=== PATIENT | male | born 1965 | race African-American/Black ===

== ENCOUNTER → 2020-12-03 09:46 | Outpatient (BNVA) | payer OTHER, SELFPAY | PROVIDERS: PCP Internal Medicine; Visit Provider Urology ==

== ENCOUNTER → 2021-12-08 10:24 | Outpatient (BNVA) | payer OTHER, SELFPAY | PROVIDERS: PCP Internal Medicine; Visit Provider Urology ==

== ENCOUNTER → 2023-02-09 14:42 | Outpatient (BNVA) | payer OTHER, SELFPAY | PROVIDERS: PCP Internal Medicine; Visit Provider Nurse Practitioner Family | DX: R51.9 Headache, unspecified (principal); G40.909 Epilepsy, unspecified, not intractable, without status epilepticus; H53.8 Other visual disturbances; R06.83 Snoring; G47.19 Other hypersomnia; G47.9 Sleep disorder, unspecified | CPT/HCPCS: 99202 ==

== ENCOUNTER 2023-03-14 09:33 | Outpatient (REF) | payer OTHER, SELFPAY ==
--- NOTE | ~2023-03-14 | MR_ITS ---
MR BRAIN WITHOUT AND WITH CONTRAST CLINICAL INFORMATION: Headache. COMPARISON: None available. TECHNIQUE: Multiplanar, multisequence MRI of the brain was obtained before and after the intravenous administration of 10 mL of Gadavist. FINDINGS: There is a 2.6 cm AP by 2.6 cm TV by 2.1 cm CC homogeneously enhancing extra-axial mass along the posterior floor of the anterior cranial fossa compatible with a meningioma. The lesion uplifts the inferior aspect of the frontal lobes and there is no adjacent parenchymal edema. There is no additional pathologic enhancement intracranially. Extensive T2 signal changes throughout the supratentorial white matter and central abelino, possibly advanced chronic microangiopathy though nonspecific. There is no hydrocephalus, extra-axial surface collection, or herniation. The major flow voids at the skull base are preserved. There is no acute infarct on diffusion-weighted imaging. There is no intracranial hemorrhage on the gradient recalled echo acquisition. The midline structures are normal. The cerebellar tonsils are normally positioned. The cerebellum and brainstem are normal. The craniocervical junction iso normal. Osseous marrow signal intensity is homogenous. The visualized soft tissues are unremarkable. MR/MR head/brain wo/w con IMPRESSION: - There is an up to 2.6 cm homogeneously enhancing extra-axial mass along the posterior floor of the anterior cranial fossa compatible with a meningioma. The lesion uplifts the inferior aspect of the frontal lobes and there is no adjacent parenchymal edema. - Extensive T2 signal changes throughout the supratentorial white matter and central abelino, possibly advanced chronic microangiopathy though nonspecific.
== END 2023-03-14 09:34 | disposition home or self-care (01) ==
LOC: HO.MRI 09:33
PROVIDERS: PCP Internal Medicine; Visit Provider Nurse Practitioner Family
DX: R51.9 Headache, unspecified (principal); H53.8 Other visual disturbances; G40.909 Epilepsy, unspecified, not intractable, without status epilepticus
CPT/HCPCS: 70553; A9585

== ENCOUNTER 2023-05-30 11:31 | Outpatient (AMB) | payer OTHER, SELFPAY ==
[2023-05-30 11:32] VITALS: BP 124/76; PULSE 77; O2SAT 95; BMI 39.5
--- NOTE | 2023-05-30 11:32 | MHC.OFFVIS ---
Intake Vital Signs 05/30/23 11:32 Height 6 ft 1 in Weight 299 lb 8 oz BMI 39.5 BP 124/76 Blood Pressure Location Rt brachial Position Sitting Pulse 77 Pulse Source Pulse Oximeter Pulse Oximetry (%) 95 Oxygen Delivery Method Room Air Intake Visit Reasons: 2m follow up seizures - Confirmed Intake Note: Pt presents as a 2 month f/u for seizures. Pt states he hasn't had any seizures and just had surgery for tumor removal on his head. Practice Advisor Required: No Allergies amoxicillin Allergy (Unknown, Verified 05/30/23 11:35) Swelling Penicillins Allergy (Unknown, Verified 05/30/23 11:35) Unknown Medication List - Last Reconciled 05/30/23 by CARMEN López albuterol sulfate 90 mcg/actuation inhalation allopurinol 300 mg PO DAILY atorvastatin 80 mg PO DAILY diazepam 2 - 4 mg (1 - 2 x 2 mg) PO BEDTIME 30 days ibuprofen mg PO lamotrigine 200 mg PO BID 30 days lancets As directed pantoprazole 40 mg PO DAILY sildenafil 200 mg (2 x 100 mg) PO .P.r.n. 30 days triamcinolone acetonide 0.025% appl topical BID HPI HPI Comments History of Present Illness Details 58-yr-old male presents for f/u visit. ESR- was 4 WNL. Brain MRI revealed 2.6 cm homogeneously enhancing extra-axial mass along the posterior floor of the anterior cranial fossa compatible with a meningioma. We thus referred pt to neurosurgery, Dr Brian. Pt has since undergone meningioma excision w/o complication. He has noticed numbness around the right upper frontal region incision. Pt states the severe frontal headaches have stopped. He continues to have almost daily mild-moderate headache a/w photophobia and phonophobia. He did not find nurtec to be helpful- and also did not like the texture/taste. Pt denies any interval seizure activity. He has not had HST yet- rescheduled it d/t the above surgery. MR/MR head/brain wo/w con IMPRESSION: - There is an up to 2.6 cm homogeneously enhancing extra-axial mass along the posterior floor of the anterior cranial fossa compatible with a meningioma. The lesion uplifts the inferior aspect of the frontal lobes and there is no adjacent parenchymal edema. ? - Extensive T2 signal changes throughout the supratentorial white matter and central abelino, possibly advanced chronic microangiopathy though nonspecific. [facility] Medical History (Updated 05/30/23 @ 12:45 by CARMEN López) Asthma Chronic knee pain Diabetes mellitus, type II Erectile dysfunction due to arterial insufficiency Fatty liver GERD (gastroesophageal reflux disease) Gout HLD (hyperlipidemia) Hx of urinary tract infection Hypercholesterolemia Nonalcoholic fatty liver disease OA (osteoarthritis) Primary osteoarthritis of knees, bilateral Seizures Surgical History (Updated 05/30/23 @ 12:23 by CARMEN López) History of colonoscopy History of shoulder surgery S/P resection of meningioma Social History (Updated 05/30/23 @ 11:36 by Dee Dee Feliz [facility]) Alcohol intake: never Patient Tobacco Use Status: Former Tobacco user Review of Systems Const All systems reviewed & are unremarkable except as noted in HPI and below Physical Exam Vital Signs: Last Vital Signs Pulse 77 05/30/23 11:32 BP 124/76 05/30/23 11:32 Pulse Ox 95 05/30/23 11:32 Oxygen Delivery Method Room Air 05/30/23 11:32 BMI result Body Mass Index 39.5 Const General: cooperative and no acute distress Orientation/consciousness: patient oriented x3 HEENT Head: Yes normocephalic Resp Effort & Inspection: normal respiratory effort and able to speak in complete sentences Neuro General: patient oriented x3, gait normal and CN's II-XI intact bilaterally Cognition (Neuro): normal cognition Motor exam (neuro): 5/5 motor strength present throughout Psych Appearance: grossly normal Mental Status: mental status grossly normal Speech and movement: Normal speech and movement present Affect: normal affect Attitude: cooperative Thought process: Normal thought process present Assessment & Plan Assessment & Plan (1) Migraine without aura: Code(s): G43.009 - Migraine without aura, not intractable, without status migrainosus (2) Meningioma: Comment: s/p excision (04/2023) by Dr Melissa Brian Code(s): D32.9 - Benign neoplasm of meninges, unspecified (3) Seizure disorder: Code(s): G40.909 - Epilepsy, unspecified, not intractable, without status epilepticus (4) Excessive daytime sleepiness: Code(s): G47.19 - Other hypersomnia (5) Sleep difficulties: Code(s): G47.9 - Sleep disorder, unspecified (6) Snoring: Code(s): R06.83 - Snoring Plan Pt again advised to undergo HST to assess for sleep apnea For seizures: Continue Lamotrigine 200mg bid. Future considerations- adjuncting w/ another AED. ? For new onset severe headaches: Improved s/p excision of meningioma. Pt will f/u with Dr Brian yearly and prn. Will request most recent records from Dr Brian. For migraine: Stopped Diazepam. Pt tried Nurtec however this was ineffective. Trial Ubrelvy 50-100mg at onset of headache, may repeat in 2hrs (max 200mg/day)- sample given, if effective, will initiate order. May take w/ Ibuprofen. May use Ibuprofen prn sparingly. Acute headache tx contraindications: triptans d/t active seizure d/o Preventive headache tx contraindications: BBs d/t asthma dx. ? f/u in 3-4 months or sooner prn. Medications: New ubrogepant (Ubrelvy) take at onset of migraine, may repeat in 2hrs (may take w/ Ibuprofen) 50 - 100 mg (0.5 - 1 x 100 mg) PO ONCE 30 days PRN 16 tabs 3RF migraine headache Discontinued rimegepant (Nurtec ODT) Discontinued Reason: Doctor's Order 75 mg orally daily PRN; 30 days 16 tabs 3RF migraine headache Coding Level of Care Code Est Pt Level 4 (49198) Diagnoses Migraine without aura G43.009 Meningioma D32.9 Seizure disorder G40.909 Excessive daytime sleepiness G47.19 Sleep difficulties G47.9 Snoring R06.83
== END 2023-05-30 12:13 | disposition home or self-care (01) ==
PROVIDERS: Visit Provider Nurse Practitioner Family
DX: G43.009 Migraine without aura, not intractable, without status migrainosus (principal); D32.9 Benign neoplasm of meninges, unspecified; G40.909 Epilepsy, unspecified, not intractable, without status epilepticus; G47.19 Other hypersomnia; G47.9 Sleep disorder, unspecified; R06.83 Snoring
CPT/HCPCS: 99214

== ENCOUNTER → 2023-05-30 11:31 | Outpatient (BNVA) | payer OTHER, SELFPAY | PROVIDERS: Visit Provider Nurse Practitioner Family | DX: G43.009 Migraine without aura, not intractable, without status migrainosus (principal); D32.9 Benign neoplasm of meninges, unspecified; G40.909 Epilepsy, unspecified, not intractable, without status epilepticus; G47.19 Other hypersomnia; G47.9 Sleep disorder, unspecified; R06.83 Snoring; Z87.891 Personal history of nicotine dependence | CPT/HCPCS: 99212 ==

== ENCOUNTER 2023-08-03 10:55 | Outpatient (AMB) | payer OTHER, SELFPAY ==
--- NOTE | 2023-08-03 11:33 | A.OFFVIS_ITS ---
Intake Intake Visit Reasons: 1Y (Erectile Dys) Intake Note: Patient is Present for Follow Up Urology Medication: Sildenafil Antibiotic Allergies: Amoxicillin, Penicillin Blood Thinners: None Pharmacy: [facility] Allergies amoxicillin Allergy (Unknown, Verified 08/03/23 11:40) Swelling Penicillins Allergy (Unknown, Verified 08/03/23 11:40) Unknown HPI HPI Comments History of Present Illness Details Shadi JONES is a very pleasant male. They are a patient of Dr Muniz. He seen for the following conditions - erectile dysfunction 200 mg Viagra works Six month follow-up tele visit He will call for refill Erectile dysfunction: He presents today for for continued evaluation and management of erectile dysfunction - Discussed generic Viagra prescription - Can try up to 200mg if has no side effects - offered MICHELINE and injections. Symptoms have been present for/since progressive over several years starting 2013. Current treatment includes Viagra/sildenafil. Treatment side effects include none. At this time he experiences erections 9/17 are partial and insufficient for vaginal penetration, that undergo detumesence prior to penetration, ANGELA 8- 11 Moderate ED - Respond well to Viagra. Nocturnal erections do occur. Currently they are in a stable relationship. Associated problems hypertension No diabetes Yes dyslipidemia Yes Medications include(s) antihypertensive medication, insulin. Overall he is satisfied with the current management. Therapeutic plan includes increasing dose of oral medication PFSH Medical History HLD (hyperlipidemia) Primary osteoarthritis of knees, bilateral Nonalcoholic fatty liver disease Hx of urinary tract infection Chronic knee pain GERD (gastroesophageal reflux disease) Gout Seizures Hypercholesterolemia Diabetes mellitus, type II OA (osteoarthritis) Asthma Fatty liver Erectile dysfunction due to arterial insufficiency Surgical History S/P resection of meningioma History of shoulder surgery History of colonoscopy Social History Alcohol intake: never Patient Tobacco Use Status: Former Tobacco user Review of Systems Const Denies chills and Denies fever(s) Card Reports no additional complaints and Denies syncope Resp Denies cough GI Denies abdominal pain and Denies heartburn Reports as per HPI and Denies change in libido Neuro Denies syncope Psych Denies change in libido Endo Denies change in libido Physical Exam Const General: cooperative, healthy appearing, comfortable and no acute distress Orientation/consciousness: patient oriented x3 HEENT Face and sinus: Yes normal facial exam Mouth: moist mucous membranes Neck Neck: Yes normal visual inspection, Yes full ROM and Yes trachea midline Chest Chest palpation & inspection: normal inspection of the chest Resp Effort & Inspection: normal respiratory effort, able to speak in complete sentences and no respiratory distress GI Inspection: Yes normal to inspection Back/Spine/Pelvis Cervical Spine: normal cervical lordosis Thoracic/Lumbar Spine: thoracic and lumbar spine normal to inspection Skin General skin exam: no rashes or lesions noted Neuro General: patient oriented x3, gait normal, tone normal and moves all extremities Extrem General: Yes normal to inspection and Yes capillary refill normal Assessment & Plan Assessment & Plan (1) Erectile dysfunction associated with type 2 diabetes mellitus: Code(s): E11.69 - Type 2 diabetes mellitus with other specified complication; N52.1 - Erectile dysfunction due to diseases classified elsewhere Plan Six month follow-up Patient Instructions: Imaging studies, laboratory and physical exam results were discussed and reviewed in detail. No major barriers to patient understanding were identified. An opportunity to ask questions regarding the treatment plan was provided. All questions were answered. The patient expressed understanding and agreement with the above treatment plan. The patient is aware they should contact our office by phone for worsening of their current condition or the appearance of new urologic symptoms. Compliance is encouraged with any medications and followup testing that is ordered. It is a privilege to participate in the urologic care of your patient. If you have any questions or concerns regarding treatment for the above conditions, or other urologic issues, please do not hesitate to contact me. The office telephone contact is [phone]. This note is constructed using voice recognition software. While every effort has been made to ensure accuracy sales administration manager errors may have been included. Yours sincerely, Dr Rito Fitzpatrick MD, [facility] - Urology Providers of Expert, Compassionate Care for the Genitourinary System Coding Level of Care Code Est Pt Level 3 (20498) Diagnoses Erectile dysfunction associated with type 2 diabetes mellitus E11.69; N52.1
== END 2023-08-03 13:14 | disposition home or self-care (01) ==
PROVIDERS: PCP Internal Medicine; Visit Provider Urology
DX: E11.69 Type 2 diabetes mellitus with other specified complication (principal); N52.1 Erectile dysfunction due to diseases classified elsewhere
CPT/HCPCS: 99213

== ENCOUNTER → 2023-08-03 10:55 | Outpatient (BNVA) | payer OTHER, SELFPAY | PROVIDERS: PCP Internal Medicine; Visit Provider Urology | DX: E11.69 Type 2 diabetes mellitus with other specified complication (principal); N52.1 Erectile dysfunction due to diseases classified elsewhere | CPT/HCPCS: 99212 ==

== ENCOUNTER → 2023-09-01 08:40 | Outpatient (REF) | payer OTHER, SELFPAY | LOC: HO.SL 08:40 | PROVIDERS: PCP Internal Medicine; Visit Provider Nurse Practitioner Family | DX: R06.83 Snoring (principal); G47.19 Other hypersomnia; G47.9 Sleep disorder, unspecified | CPT/HCPCS: 95806 ==

== ENCOUNTER → 2023-09-01 08:53 | Outpatient (BNV) | payer OTHER, SELFPAY | PROVIDERS: PCP Internal Medicine; Visit Provider Psychiatry & Neurology Neurology | DX: R06.83 Snoring (principal) | CPT/HCPCS: 95806 ==

== ENCOUNTER 2023-10-05 08:39 | Outpatient (AMB) | payer OTHER, SELFPAY ==
--- NOTE | 2023-10-05 08:39 | MHC.OFFVIS ---
Intake Vital Signs 10/05/23 08:40 Height 6 ft 1 in Weight 302 lb BMI 39.8 BP 132/82 Blood Pressure Location Rt brachial Position Sitting Pulse 80 Pulse Source Pulse Oximeter Intake Visit Reasons: 4m follow up seizures-LVM Intake Note: Patient presents for 4 month follow up seizures. Allergies amoxicillin Allergy (Unknown, Verified 10/05/23 08:42) Swelling Penicillins Allergy (Unknown, Verified 10/05/23 08:42) Unknown Medication List - Last Reconciled 10/05/23 by CARMEN López albuterol sulfate 90 mcg/actuation inhalation allopurinol 300 mg PO DAILY atorvastatin 80 mg PO DAILY diazepam 2 - 4 mg (1 - 2 x 2 mg) PO BEDTIME 30 days ibuprofen mg PO lamotrigine 200 mg PO BID 30 days lancets As directed pantoprazole 40 mg PO DAILY sildenafil 200 mg (2 x 100 mg) PO .P.r.n. 30 days triamcinolone acetonide 0.025% appl topical BID ubrogepant (Ubrelvy) 50 - 100 mg (0.5 - 1 x 100 mg) PO ONCE PRN 30 days HPI HPI Comments History of Present Illness Details 58-yr-old male presents for f/u visit. Pt denies any significant interval medical changes. Pt denies any interval seizure activities. HST was inconclusive- AHI 4,4/hr w/ O2 Xavier 87%, AHI significantly higher in supine position- 15.5/hr. Pt reports some increased difficulty falling asleep. States his body is relaxed, but his mind just keeps going. Notes he has a lot of things going on- his father is in a skilled nursing. He has had 4 mild headaches since has last visit. Has the Ubrelvy but has not needed to use. He is supposed to follow-up w/ Dr Brian yearly. He is concerned about the annual MRI d/t claustrophobia. [facility] Medical History HLD (hyperlipidemia) Primary osteoarthritis of knees, bilateral Nonalcoholic fatty liver disease Hx of urinary tract infection Chronic knee pain GERD (gastroesophageal reflux disease) Gout Seizures Hypercholesterolemia Diabetes mellitus, type II OA (osteoarthritis) Asthma Fatty liver Erectile dysfunction due to arterial insufficiency Surgical History S/P resection of meningioma History of shoulder surgery History of colonoscopy Social History Alcohol intake: never Patient Tobacco Use Status: Former Tobacco user Review of Systems Const All systems reviewed & are unremarkable except as noted in HPI and below Physical Exam Vital Signs: Last Vital Signs Pulse 80 10/05/23 08:40 BP 132/82 10/05/23 08:40 BMI result Body Mass Index 39.8 Const General: cooperative and no acute distress Orientation/consciousness: patient oriented x3 HEENT Head: Yes normocephalic Resp Effort & Inspection: normal respiratory effort and able to speak in complete sentences Neuro General: patient oriented x3, gait normal and CN's II-XI intact bilaterally Cognition (Neuro): normal cognition Motor exam (neuro): 5/5 motor strength present throughout Psych Appearance: grossly normal Mental Status: mental status grossly normal Speech and movement: Normal speech and movement present Affect: normal affect Attitude: cooperative Thought process: Normal thought process present Thought content: Normal thought content present Insight: Good insight present (Psych) Judgement: Good judgement present (Psych) Assessment & Plan Assessment & Plan (1) Seizure disorder: Code(s): G40.909 - Epilepsy, unspecified, not intractable, without status epilepticus (2) Sleep difficulties: Code(s): G47.9 - Sleep disorder, unspecified (3) Excessive daytime sleepiness: Code(s): G47.19 - Other hypersomnia (4) Snoring: Code(s): R06.83 - Snoring (5) Migraine without aura: Code(s): G43.009 - Migraine without aura, not intractable, without status migrainosus Plan For sleep: Reviewed HST- inconclusive. Pt advised to undergo in-lab PSG to further assess. Avoid sleeping in supine position. Pt may benefit from reading/listening to [facility] to Insomnia by Dr Zeeshan Fragoso or similar CBTi resources. ? For seizures: Continue Lamotrigine 200mg bid. ? For hx meningioma s/p resection: Pt will f/u with Dr Brian yearly and prn. For f/u MRIs- pt will need pre-tx w/ anti-anxiety agent and ? open MRI. ?For migraine: May use Diazepam prn muscle spasm/sleep. Ubrelvy 50-100mg at onset of headache, may repeat in 2hrs (max 200mg/day)- sample given, if effective, will initiate order. May take w/ Ibuprofen. May use Ibuprofen prn sparingly. Acute headache tx contraindications: triptans d/t active seizure d/o Preventive headache tx contraindications: BBs d/t asthma dx. Previous tx trials: Nurtec- ineffective. ? f/u in 3-4 months or sooner prn. Orders: Orders RT PSG in-lab sleep study Today G40.909 - Epilepsy, unspecified, not intractable, without status epilepticus, G47.19 - Other hypersomnia, G47.9 - Sleep disorder, unspecified, R06.83 - Snoring Medications: Refilled diazepam 2 - 4 mg (1 - 2 x 2 mg) PO BEDTIME 30 days 60 tabs 1RF muscle spasm Coding Level of Care Code Est Pt Level 4 (94780) Diagnoses Seizure disorder G40.909 Sleep difficulties G47.9 Excessive daytime sleepiness G47.19 Snoring R06.83 Migraine without aura G43.009
[2023-10-05 08:40] VITALS: BP 132/82; PULSE 80; BMI 39.8
== END 2023-10-05 09:20 | disposition home or self-care (01) ==
PROVIDERS: PCP Internal Medicine; Visit Provider Nurse Practitioner Family
DX: G40.909 Epilepsy, unspecified, not intractable, without status epilepticus (principal); G47.9 Sleep disorder, unspecified; G47.19 Other hypersomnia; R06.83 Snoring; G43.009 Migraine without aura, not intractable, without status migrainosus
CPT/HCPCS: 99214

== ENCOUNTER → 2023-10-05 08:39 | Outpatient (BNVA) | payer OTHER, SELFPAY | PROVIDERS: PCP Internal Medicine; Visit Provider Nurse Practitioner Family | DX: G40.909 Epilepsy, unspecified, not intractable, without status epilepticus (principal); G47.9 Sleep disorder, unspecified; G47.19 Other hypersomnia; G43.009 Migraine without aura, not intractable, without status migrainosus; R06.83 Snoring | CPT/HCPCS: 99212 ==

== ENCOUNTER 2024-03-02 10:39 | Outpatient (AMB) | payer OTHER, SELFPAY ==
--- NOTE | 2024-03-02 10:40 | MHC.OFFVIS ---
Intake Visit Reasons: follow up Intake Note: Patient is Present for Follow Up Urology Medication: Sildenafil Antibiotic Allergies: Amoxicillin, Penicillins Blood Thinners: none Allergies amoxicillin Allergy (Unknown, Verified 10/05/23 08:42) Swelling Penicillins Allergy (Unknown, Verified 10/05/23 08:42) Unknown Medication List - Last Reconciled 03/02/24 by Rito Fitzpatrick MD albuterol sulfate 90 mcg/actuation inhalation allopurinol 300 mg PO DAILY atorvastatin 80 mg PO DAILY diazepam 2 - 4 mg (1 - 2 x 2 mg) PO BEDTIME 30 days ibuprofen mg PO lamotrigine 200 mg PO BID 30 days lancets As directed pantoprazole 40 mg PO DAILY sildenafil 200 mg (2 x 100 mg) PO .P.r.n. 30 days triamcinolone acetonide 0.025% appl topical BID ubrogepant (Ubrelvy) 50 - 100 mg (0.5 - 1 x 100 mg) PO ONCE PRN 30 days HPI Comments Details: Shadi JONES is a very pleasant male. They are a patient of Dr Muniz. He seen for the following conditions - erectile dysfunction Telemedicine Evaluation 15 min Consultation [employer] Bernadine Video Six-month follow-up Has been on 200 mg Viagra as needed Erectile dysfunction: He presents today for for continued evaluation and management of erectile dysfunction - Discussed generic Viagra prescription - Can try up to 200mg if has no side effects - offered MICHELINE and injections. Symptoms have been present for/since progressive over several years starting 2013. Current treatment includes Viagra/sildenafil. Treatment side effects include none. At this time he experiences erections 9/17 are partial and insufficient for vaginal penetration, that undergo detumesence prior to penetration, ANGELA 8-11 Moderate ED - Respond well to Viagra. Nocturnal erections do occur. Currently they are in a stable relationship. Associated problems hypertension No diabetes Yes dyslipidemia Yes Medications include(s) antihypertensive medication, insulin. Overall he is satisfied with the current management. Therapeutic plan includes increasing dose of oral medication [facility] Medical History HLD (hyperlipidemia) Primary osteoarthritis of knees, bilateral Nonalcoholic fatty liver disease Hx of urinary tract infection Chronic knee pain GERD (gastroesophageal reflux disease) Gout Seizures Hypercholesterolemia Diabetes mellitus, type II OA (osteoarthritis) Asthma Fatty liver Erectile dysfunction due to arterial insufficiency Surgical History S/P resection of meningioma History of shoulder surgery History of colonoscopy Social History Alcohol intake: never Patient Tobacco Use Status: Former Tobacco user Review of Systems Const All systems reviewed & are unremarkable except as noted in HPI and below Reports no additional complaints Resp Reports no additional complaints GI Reports no additional complaints Reports as per HPI Musc Reports no additional complaints Physical Exam Telemedicine evaluation Appropriate responses Regular breathing rate and rhythm HEENT Head: Yes normal to inspection Ears: hearing grossly normal bilaterally Eyes General: appearance normal, both eyes and all related structures Neck Neck: Yes normal visual inspection Chest Chest palpation & inspection: normal inspection of the chest Resp Effort & Inspection: normal respiratory effort and able to speak in complete sentences Telehealth Telehealth Telehealth Platform: [employer] Location of provider rendering services: practice address Location of patient: address on file Patient Identification confirmed using: Name, : Yes Telehealth method: video Patient verbally consented to treatment: Yes Patient verbally consented to billing insurance company: Yes Patient informed of any privacy concerns related to visit: Yes Assessment & Plan Assessment & Plan (1) Erectile dysfunction associated with type 2 diabetes mellitus: Code(s): E11.69 - Type 2 diabetes mellitus with other specified complication; N52.1 - Erectile dysfunction due to diseases classified elsewhere Category: Medical Plan Twelve month follow-up Patient Instructions: Imaging studies, laboratory and physical exam results were discussed and reviewed in detail. No major barriers to patient understanding were identified. An opportunity to ask questions regarding the treatment plan was provided. All questions were answered. The patient expressed understanding and agreement with the above treatment plan. The patient is aware they should contact our office by phone for worsening of their current condition or the appearance of new urologic symptoms. Compliance is encouraged with any medications and followup testing that is ordered. It is a privilege to participate in the urologic care of your patient. If you have any questions or concerns regarding treatment for the above conditions, or other urologic issues, please do not hesitate to contact me. The office telephone contact is [phone]. This note is constructed using voice recognition software. While every effort has been made to ensure accuracy materials handling coordinator errors may have been included. Yours sincerely, Dr Rito Fitzpatrick MD, [facility] - Urology Providers of Expert, Compassionate Care for the Genitourinary System Coding Level of Care Code Tele Est Pt Level 3 (93388) Diagnoses Erectile dysfunction associated with type 2 diabetes mellitus E11.69; N52.1
== END 2024-03-02 11:22 | disposition home or self-care (01) ==
LOC: HO.HUSH 10:39
PROVIDERS: PCP Internal Medicine; Visit Provider Urology
DX: E11.69 Type 2 diabetes mellitus with other specified complication (principal); N52.1 Erectile dysfunction due to diseases classified elsewhere
CPT/HCPCS: 99213

== ENCOUNTER → 2024-03-02 10:39 | Outpatient (BNVA) | payer OTHER, SELFPAY | PROVIDERS: PCP Internal Medicine; Visit Provider Urology ==

== ENCOUNTER 2024-05-24 09:32 | Outpatient (AMB) | payer OTHER, SELFPAY ==
--- NOTE | 2024-05-24 09:33 | A.OFFVIS_ITS ---
Intake Visit Reasons: Change of meds Intake Note: Patient is Present for Telephone Follow Up Med review Urology Med: Sildenafil Antibiotic Allergy: Amoxicillin, Penicillin Blood Thinner: None Patient would like to change his medication. Patient states that Sildenafil is not effective for him and would like to try another medication [employer] Required: No Allergies amoxicillin Allergy (Unknown, Verified 05/24/24 09:36) Swelling Penicillins Allergy (Unknown, Verified 05/24/24 09:36) Unknown HPI Comments Details: Shadi JONES is a very pleasant male. They are a patient of Dr Muniz. He seen for the following conditions - erectile dysfunction Telemedicine Evaluation 15 min Consultation [employer] Bernadine Video Failed high dose on demand Viagra Recommend high-dose daily Cialis with on demand sildenafil Erectile dysfunction: He presents today for for continued evaluation and management of erectile dysfunction - Discussed generic Viagra prescription - Can try up to 200mg if has no side effects - offered MICHELINE and injections. Symptoms have been present for/since progressive over several years starting 2013. Current treatment includes Viagra/sildenafil. Treatment side effects include none. At this time he experiences erections 9/17 are partial and insufficient for vaginal penetration, that undergo detumesence prior to penetration, ANGELA 8- 11 Moderate ED - Respond well to Viagra. Nocturnal erections do occur. Currently they are in a stable relationship. Associated problems hypertension No diabetes Yes dyslipidemia Yes Medications include(s) antihypertensive medication, insulin. Overall he is satisfied with the current management. Therapeutic plan includes increasing dose of oral medication PFSH Medical History HLD (hyperlipidemia) Primary osteoarthritis of knees, bilateral Nonalcoholic fatty liver disease Hx of urinary tract infection Chronic knee pain GERD (gastroesophageal reflux disease) Gout Seizures Hypercholesterolemia Diabetes mellitus, type II OA (osteoarthritis) Asthma Fatty liver Erectile dysfunction due to arterial insufficiency Surgical History S/P resection of meningioma History of shoulder surgery History of colonoscopy Social History Alcohol intake: never Patient Tobacco Use Status: Former Tobacco user Review of Systems Const All systems reviewed & are unremarkable except as noted in HPI and below Reports no additional complaints Resp Reports no additional complaints GI Reports no additional complaints Reports as per HPI Musc Reports no additional complaints Physical Exam Telemedicine evaluation Appropriate responses Regular breathing rate and rhythm HEENT Head: Yes normal to inspection Ears: hearing grossly normal bilaterally Eyes General: appearance normal, both eyes and all related structures Neck Neck: Yes normal visual inspection Chest Chest palpation & inspection: normal inspection of the chest Resp Effort & Inspection: normal respiratory effort and able to speak in complete sentences Telehealth Telehealth Telehealth Platform: [employer] Location of provider rendering services: practice address Location of patient: address on file Patient Identification confirmed using: Name, : Yes Telehealth method: video Patient verbally consented to treatment: Yes Patient verbally consented to billing insurance company: Yes Patient informed of any privacy concerns related to visit: Yes Minutes spent on Phone/Video with Pt.: 15 Assessment & Plan Assessment & Plan (1) Erectile dysfunction associated with type 2 diabetes mellitus: Code(s): E11.69 - Type 2 diabetes mellitus with other specified complication; N52.1 - Erectile dysfunction due to diseases classified elsewhere Category: Medical Plan Three month follow-up tele Medications: New tadalafil daily medication 10 mg PO DAILY 90 days 90 tabs 0RF sexual activity E11.69 - Type 2 diabetes mellitus with other specified complication, N52.1 - Erectile dysfunction due to diseases classified elsewhere Patient Instructions: Imaging studies, laboratory and physical exam results were discussed and reviewed in detail. No major barriers to patient understanding were identified. An opportunity to ask questions regarding the treatment plan was provided. All questions were answered. The patient expressed understanding and agreement with the above treatment plan. The patient is aware they should contact our office by phone for worsening of their current condition or the appearance of new urologic symptoms. Compliance is encouraged with any medications and followup testing that is ordered. It is a privilege to participate in the urologic care of your patient. If you have any questions or concerns regarding treatment for the above conditions, or other urologic issues, please do not hesitate to contact me. The office telephone contact is [phone]. This note is constructed using voice recognition software. While every effort has been made to ensure accuracy respiratory support technician errors may have been included. Yours sincerely, Dr Rito Fitzpatrick MD, [facility] - Urology Providers of Expert, Compassionate Care for the Genitourinary System Coding Level of Care Code Tele Est Pt Level 4 (96567) Diagnoses Erectile dysfunction associated with type 2 diabetes mellitus E11.69; N52.1
== END 2024-05-24 10:11 | disposition home or self-care (01) ==
LOC: HO.HUSH 09:32
PROVIDERS: PCP Internal Medicine; Visit Provider Urology
DX: E11.69 Type 2 diabetes mellitus with other specified complication (principal); N52.1 Erectile dysfunction due to diseases classified elsewhere
CPT/HCPCS: 99214

== ENCOUNTER → 2024-05-24 09:32 | Outpatient (BNVA) | payer OTHER, SELFPAY | PROVIDERS: PCP Internal Medicine; Visit Provider Urology ==

== ENCOUNTER 2024-08-23 08:17 | Outpatient (AMB) | payer OTHER, SELFPAY ==
--- NOTE | 2024-08-23 09:11 | MHC.OFFVIS ---
Intake Visit Reasons: 3m/med review(Tadalafil) Allergies amoxicillin Allergy (Unknown, Verified 05/24/24 09:36) Swelling Penicillins Allergy (Unknown, Verified 05/24/24 09:36) Unknown HPI Comments Details: Shadi JONES is a very pleasant male. They are a patient of Dr Muniz. He seen for the following conditions - erectile dysfunction Telemedicine Evaluation 15 min Consultation [employer] Bernadine Video attempted Did not pay for daily Cialis Prescription be provided to [facility] for 34 dollars Three-month follow-up Erectile dysfunction: He presents today for for continued evaluation and management of erectile dysfunction - Discussed generic Viagra prescription - Can try up to 200mg if has no side effects - offered MICHELINE and injections. Symptoms have been present for/since progressive over several years starting 2013. Current treatment includes Viagra/sildenafil. Treatment side effects include none. At this time he experiences erections 9/17 are partial and insufficient for vaginal penetration, that undergo detumesence prior to penetration, ANGELA 8-11 Moderate ED - Respond well to Viagra. Nocturnal erections do occur. Currently they are in a stable relationship. Associated problems hypertension No diabetes Yes dyslipidemia Yes Medications include(s) antihypertensive medication, insulin. Overall he is satisfied with the current management. Therapeutic plan includes increasing dose of oral medication PFSH Medical History HLD (hyperlipidemia) Primary osteoarthritis of knees, bilateral Nonalcoholic fatty liver disease Hx of urinary tract infection Chronic knee pain GERD (gastroesophageal reflux disease) Gout Seizures Hypercholesterolemia Diabetes mellitus, type II OA (osteoarthritis) Asthma Fatty liver Erectile dysfunction due to arterial insufficiency Surgical History S/P resection of meningioma History of shoulder surgery History of colonoscopy Social History Alcohol intake: never Patient Tobacco Use Status: Former Tobacco user Review of Systems Const All systems reviewed & are unremarkable except as noted in HPI and below Reports no additional complaints Resp Reports no additional complaints GI Reports no additional complaints Reports as per HPI Musc Reports no additional complaints Physical Exam Telemedicine evaluation Appropriate responses Regular breathing rate and rhythm HEENT Head: Yes normal to inspection Ears: hearing grossly normal bilaterally Eyes General: appearance normal, both eyes and all related structures Neck Neck: Yes normal visual inspection Chest Chest palpation & inspection: normal inspection of the chest Resp Effort & Inspection: normal respiratory effort and able to speak in complete sentences Telehealth Telehealth Telehealth Platform: [employer] Location of provider rendering services: practice address Location of patient: address on file Patient Identification confirmed using: Name, : Yes Telehealth method: video Patient verbally consented to treatment: Yes Patient verbally consented to billing insurance company: Yes Patient informed of any privacy concerns related to visit: Yes Minutes spent on Phone/Video with Pt.: 15 Assessment & Plan Assessment & Plan (1) Erectile dysfunction associated with type 2 diabetes mellitus: Code(s): E11.69 - Type 2 diabetes mellitus with other specified complication; N52.1 - Erectile dysfunction due to diseases classified elsewhere Category: Medical Plan Three-month follow-up tele Patient Instructions: Imaging studies, laboratory and physical exam results were discussed and reviewed in detail. No major barriers to patient understanding were identified. An opportunity to ask questions regarding the treatment plan was provided. All questions were answered. The patient expressed understanding and agreement with the above treatment plan. The patient is aware they should contact our office by phone for worsening of their current condition or the appearance of new urologic symptoms. Compliance is encouraged with any medications and followup testing that is ordered. It is a privilege to participate in the urologic care of your patient. If you have any questions or concerns regarding treatment for the above conditions, or other urologic issues, please do not hesitate to contact me. The office telephone contact is [phone]. This note is constructed using voice recognition software. While every effort has been made to ensure accuracy lever miller errors may have been included. Yours sincerely, Dr Rito Fitzpatrick MD, [facility] - Urology Providers of Expert, Compassionate Care for the Genitourinary System Coding Level of Care Code Tele Est Pt Level 3 (04741) Diagnoses Erectile dysfunction associated with type 2 diabetes mellitus E11.69; N52.1
== END 2024-08-23 09:22 | disposition home or self-care (01) ==
LOC: HO.HUSH 08:17
PROVIDERS: PCP Internal Medicine; Visit Provider Urology
DX: E11.69 Type 2 diabetes mellitus with other specified complication (principal); N52.1 Erectile dysfunction due to diseases classified elsewhere
CPT/HCPCS: 99213

== ENCOUNTER → 2024-08-23 08:17 | Outpatient (BNVA) | payer OTHER, SELFPAY | PROVIDERS: PCP Internal Medicine; Visit Provider Urology ==

== ENCOUNTER 2024-11-22 09:12 | Outpatient (AMB) | payer OTHER, SELFPAY ==
--- NOTE | 2024-11-22 09:12 | MHC.OFFVIS ---
Intake Visit Reasons: 3m follow up Intake Note: Patient is present for 3M F/U Urology Medication:SILDENAFIL,ALLOPURINOL Antibiotic Allergy:AMOXICILLIN,PENICILLINS Blood Thinner:NONE [employer] Required: No Allergies amoxicillin Allergy (Unknown, Verified 11/22/24 09:13) Swelling Penicillins Allergy (Unknown, Verified 11/22/24 09:13) Unknown HPI Comments Details: Shadi JONES is a very pleasant male. They are a patient of Dr Muniz. He seen for the following conditions - erectile dysfunction Telemedicine Evaluation 15 min Consultation [employer] Bernadine Video attempted Does have some benefit from daily 10 mg Cialis Refill sent Has also been using on demand sildenafil occasionally Six-month follow-up Erectile dysfunction: He presents today for for continued evaluation and management of erectile dysfunction - Discussed generic Viagra prescription - Can try up to 200mg if has no side effects - offered MICHELINE and injections. Symptoms have been present for/since progressive over several years starting 2013. Current treatment includes Viagra/sildenafil. Treatment side effects include none. At this time he experiences erections 9/17 are partial and insufficient for vaginal penetration, that undergo detumesence prior to penetration, ANGELA 8-11 Moderate ED - Respond well to Viagra. Nocturnal erections do occur. Currently they are in a stable relationship. Associated problems hypertension No diabetes Yes dyslipidemia Yes Medications include(s) antihypertensive medication, insulin. Overall he is satisfied with the current management. Therapeutic plan includes increasing dose of oral medication PFSH Medical History HLD (hyperlipidemia) Primary osteoarthritis of knees, bilateral Nonalcoholic fatty liver disease Hx of urinary tract infection Chronic knee pain GERD (gastroesophageal reflux disease) Gout Seizures Hypercholesterolemia Diabetes mellitus, type II OA (osteoarthritis) Asthma Fatty liver Erectile dysfunction due to arterial insufficiency Surgical History S/P resection of meningioma History of shoulder surgery History of colonoscopy Social History Alcohol intake: never Patient Tobacco Use Status: Former Tobacco user Telehealth Telehealth Telehealth Platform: [employer] Location of provider rendering services: practice address Location of patient: address on file Patient Identification confirmed using: Name, : Yes Telehealth method: video Patient verbally consented to treatment: Yes Patient verbally consented to billing insurance company: Yes Patient informed of any privacy concerns related to visit: Yes Minutes spent on Phone/Video with Pt.: 15 Assessment & Plan Assessment & Plan (1) Erectile dysfunction associated with type 2 diabetes mellitus: Code(s): E11.69 - Type 2 diabetes mellitus with other specified complication; N52.1 - Erectile dysfunction due to diseases classified elsewhere Category: Medical Plan Six-month follow-up office Medications: Refilled tadalafil daily medication - [facility] [address]33 [id number] 10 mg PO DAILY 90 days 90 tabs 0RF sexual activity E11.69 - Type 2 diabetes mellitus with other specified complication, N52.1 - Erectile dysfunction due to diseases classified elsewhere Patient Instructions: Imaging studies, laboratory and physical exam results were discussed and reviewed in detail. No major barriers to patient understanding were identified. An opportunity to ask questions regarding the treatment plan was provided. All questions were answered. The patient expressed understanding and agreement with the above treatment plan. The patient is aware they should contact our office by phone for worsening of their current condition or the appearance of new urologic symptoms. Compliance is encouraged with any medications and followup testing that is ordered. It is a privilege to participate in the urologic care of your patient. If you have any questions or concerns regarding treatment for the above conditions, or other urologic issues, please do not hesitate to contact me. The office telephone contact is [phone]. This note is constructed using voice recognition software. While every effort has been made to ensure accuracy sugar mill worker errors may have been included. Yours sincerely, Dr Rito Fitzpatrick MD, [facility] - Urology Providers of Expert, Compassionate Care for the Genitourinary System Coding Level of Care Code Tele Est Pt Level 3 (91810) Diagnoses Erectile dysfunction associated with type 2 diabetes mellitus E11.69; N52.1
--- OUTSIDE RECORDS SUMMARY | 2024-11-22 12:14 | XMS_ITS | Clinical Summary ---
Author Organization [facility] Address [address] [place] [address] Care Team Providers Care Cardiac/Vascular Sonographer Name Role Phone Davis Muniz MD Primary Care Provider [phone] Medications Medication Sig Dispensed Refills Start Date End Date Status atorvastatin (LIPITOR) tablet 80 mg Take 1 tablet (80 mg total) by mouth daily. 0 Active allopurinol (ZYLOPRIM) 300 MG tablet Take 1 tablet (300 mg total) by mouth daily. 0 Active lamoTRIgine (LaMICtal) 200 MG tablet Take 1 tablet (200 mg total) by mouth 2 (two) times a day. 0 Active pantoprazole (PROTONIX) 40 MG tablet Take 1 tablet (40 mg total) by mouth every morning on an empty stomach. 0 Active Social History Tobacco Use Types Packs/Day Years Used Date Smoking Tobacco: Never Assessed Sex and Gender Information Value Date Recorded Sex Assigned at Male 07/12/2024 9:57 AM EDT Gender Identity Not on file Sexual Orientation Not on file Job Start Date Occupation Industry Not on file Not on file Not on file Plan of Treatment Health Maintenance Due Date Last Done Comments Hepatitis B Vaccines (1 of 3 - 3-dose series) 1967 Hepatitis C Screening 1967 COVID-19 Vaccine (#1) 1967 Depression Screening 1979 Preventative Health Evaluation 1985 Colon Cancer Screening (Colonoscopy) 2012 Shingrix-Zoster Vaccine (1 o f 2) 2017 Influenza Vaccine (#1) 2024 0, 07/28/2018, 06/29/2017 DTap / Tdap / Td (2 - Td or Tdap) 09/08/2030 09/08/2020 Pneumococcal Vaccine Aged Out 02/08/2019, 11/07/2017 No longer eligible based on patient's age to complete this topic RSV Ped < 20 months Aged Out No longe r eligible based on patient's age to complete this topic Insurance Payer Benefit Plan / Group Subscriber ID Effective Dates Phone Address Type [facility] [id number] 2021-10/16 [address] [address] [place] [address] MEDICAID [place] MED[place] MANAGED [id number] 2024-Pre sent Medicaid MEDICAID [place] MED[place] [id number] 2024-Pr e sent [address] [place] [address] Medicaid MEDICAID [place] MNGED [facility] PLAN [id number] 2017-Yamileth marroquin [address] [address] [place] [address] Medicaid Care Teams Cardiac/Vascular Sonographer Relationship Specialty Start Date End Date Davis Muniz MD PCP - General Internal Medicine 07/12/24
--- OUTSIDE RECORDS SUMMARY | 2024-11-22 12:15 | XMS_ITS | Encounter Summary ---
Author Organization [facility] Address [address] [place] [address] Care Team Providers Care Merchant Mariner Name Role Phone Davis Muniz MD Primary Care Provider [phone] Reason for Visit * Reason Onset Date Comments PREOP REVIEW 11/07/2024 Encounter Details Date Type Department Care Team ([facility] st Contact Info) Description 11/07/2024 Telephone Orthopedic Surgery - [place] [address] [facility] [address] [place] [address] Yara Brenner RN PREOP REVIEW Social History Tobacco Use Types Packs/Day Years Used Date Smoking Tobacco: Former Cigarettes Q uit: 03/04/2014 Smokeless Tobacco: Never Alcohol Use Standard Drinks/Week Comments Yes 0 (1 standard drink = 0.6 oz pur e alcohol) Sex and Gender Information Value Date Recorded Sex Assigned at Not on file Gender Identity Not on file Sexual Orientation Not on file Job Start Date Occupation Industry Not on file Not on file Not on file documented as of this encounter Progress Notes * Yara Brenner RN - 11/07/2024 1:12 PM EST PRE-OP REVIEW: Prior Living Arrangements: Lives alone in an apartment, however girlfriend Malgorzata will be staying with patient after surgery, there are no stairs to enter and there is an elevator for him to use, onceinside apt everything is on one level Who will assist patient at home: his girlfriend Malgorzata DME: has a cane and grab bars, patient does not have a recliner Outside Services: none PCP: Dr. Muniz HCP: does not have a HCP, will need to complete one prior to surgery Patient's discharge goal: home with [facility] agency of choice and prebooked Patient's ride home: his girlfriend Malgorzata [phone] This nurse instructed patient NPO after midnight the day prior to surgery and small sips of H20 with medications on day of surgery. Patient instructed not to take Viagra 3 days prior to surgery. documented in this encounter Plan of Treatment Upcoming Encounters Date Type Department Care Team (Latest Contact Info) Description 12/10/2024 8:30 AM EST Office Visit [facility] [place] [address] [address] Mundo Richardson MD [address] [phone] 12/11/2024 7:30 AM EST Hospital Encounter [facility] [place] [address] [place] [phone] Davis Phelan MD [address] [address] 12/11/2024 7:30 AM EST - 12/11/2024 10:00 AM EST Surgery [facility] [address] [place] [phone] Davis Phelan MD [address] [address] ARTHROPLASTY SHOULDER REVERSE APPROACH RIGHT [[id number] (CPT??)] 12/25/2024 2:30 PM EST Consult Nephrology - [place] [address] [place] [address] Sergey Mesa MD [address] [facility] [address] [place] [phone] 12/26/2024 11:30 AM EST Office Visit Orthopedic Surgery - [place] [address] 175 [facility] [address] [place] [phone] Davis Phelan MD 175 [facility] [address] [place] [address] Scheduled Procedures Name Priority Associated Diagnoses Date/Ti me ARTHROPLASTY SHOULDER REVERSE APPROACH BILATERAL Rotator cuff arthropathy, right 12/11/2024 7:30 AM EST documented as of this encounter Visit Diagnoses Not on filedocumented in this encounter Care Teams Merchant Mariner Relationship Specialty Start Date End Date Davis Muniz MD [address] [place] [id number] PCP - General Internal Medicine 08/31/24 documented as of this encounter
--- OUTSIDE RECORDS SUMMARY | 2024-11-22 12:15 | XMS_ITS | Clinical Summary ---
Author Organization 175 [facility] Address [address] [place] [address] Phone Care Team Providers Care Game Moderator Name Role Phone Davis Muniz MD Primary Care Provider [phone] Allergies Active Allergy Reactions Criticality Noted Date Comments Amoxicillin Swelling 10/04/2017 Pollen Extracts 10/04/2024 Medications Medication Sig Dispensed Refills Start Date End Date Status butalbital-acetami nophen-caffeine 50-300-40 mg capsule Take by mouth. Active pantoprazole (PROTONIX) 40 mg EC tablet Take 1 tablet (40 mg total) by mouth 1 (one) time each day. 08/02/2024 Active allopurinoL (ZYLOPRIM) 300 mg tablet Take 1 tablet (300 mg total) by mouth 1 (one) time each day. 05/16/2024 Active atorvastatin (LIPITOR) 80 mg tablet Take 1 tablet (80 mg total) by mouth daily. 03/13/2024 Active lamoTRIgine (LaMICtal) 200 mg tablet Take 1 tablet (200 mg total) by mouth 2 (two) times a day. 03/07/2023 Active albuterol HFA (Ventolin HFA) 90 mcg/actuation inhaler INHALE TWO PUFFS BY MOUTH FOUR TIMES A DAY NEEDED FOR WHEEZE COUGH OR FOR SHORTNESS OF BREATH 02/08/2023 Active sildenafiL (VIAGRA) 100 mg tablet TAKE 1 TABLET NEEDED 09/05/2020 Active beclomethasone dipropionate 40 mcg/actuation HFA aerosol inhaler Inhale 2 Puffs into the lungs 2 times daily. 09/08/2020 Active FREESTYLE LANCETS MISC 09/08/2020 Active glucose blood test strip 09/08/2020 Active amitriptyline (ELAVIL) 25 mg tablet Take 1 tablet (25 mg total) by mouth 1 (one) time each day. 30 tablet 2 11/08/2024 11/08/2025 Active amitriptyline (ELAVIL) 25 mg tablet Take 1 tablet (25 mg total) by mouth 1 (one) time each day. 30 tablet 2 10/04/2024 11/08/2024 Discontinue d(Reorder) Active Problems Problem Noted Date Diagnosed Date Rotator cuff arthropathy, right 09/24/2024 Morbid obesity with BMI of 40.0-44.9, adult 08/24 Chronic bilateral low back pain without sciatica 03/13/2024 Meningioma, cerebral 04/01/2023 Overview (09/03/2024): Last Assessment & Plan: Mr. 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 He recovered well from surgery, has no issues with vision or with jaw pain chewing. He does report continued and nearly constant left-sided headache which has not responded to avpo-pny-fsqeslr medication. On exam, his incision is well-healed with no temporal atrophy. PERRL, EOMI, VFF, face is symmetric, speech is clear and fluent, strength is full with normal gait. Review of the MRI of the brain with and without gadolinium at [facility] dated 04/30/2024 shows no residual or recurrent enhancement in the operative bed. There is no evidence of stroke, hemorrhage or hydrocephalus. Mr. Barajas is doing well from a postoperative standpoint but has persistent, unrelated headaches. I recommended either Fioricet or Cafergot iugo-pyh-hzynvtm and follow-up with his PCP if the headaches persist for further management or referral to neurology. We will continue with surveillance imaging for at least 10 years. Uncontrolled type 2 diabetes mellitus with hyper glycemia 06/09/2022 External hemorrhoids 11/23/2017 Vasculogenic erectile dysfunction 06/06/2017 Fatty liver disease, nonalcoholic 04/12/2017 Uncomplicated asthma 02/07/2017 Primary osteoarthritis of both knees 08/12/2016 Chronic knee pain 03/30/2016 Pure hypercholesterolemia 03/05/2016 Gastroesophageal reflux disease without esophagi tis 03/04/2016 Gout 03/04/2016 Marijuana use 03/04/2016 Seizure disorder 03/04/2016 Overview (09/03/2024): Occurring after closed head injuries Encounters Date Type Department Care Team Description 11/19/2024 10:00 AM EST Consult Internal Medicine - [address] [phone] Davis Muniz MD Uncontrolled type 2 diabetes mellitus with hyperglycemia ([facility]) (Primary Dx); Chronic right shoulder pain; Pre-operative clearance; Mild intermittent asthma without complication 11/19/2024 [facility] 160 [address] [facility] [address] [place] [phone] Dinorah Jacobs MA Post op PT Order 11/07/2024 [facility] 250 [address] [facility] [address] [place] [phone] Yara Brenner RN PREOP REVIEW 10/04/2024 1:00 PM EST Consult [facility] 175 [facility] [address] [place] [phone] Mundo Richardson MD Meningioma, cerebral ([facility]/HCC) (Primary Dx); Chronic migraine without aura with status migrainosus, not intractable; Seizure ([facility]) 10/02/2024 Telephone Orthopedic Surgery [facility] 250 [address] [facility] [address] [place] [phone] Marlena Pool MA Surgery 09/19/2024 Telephone Orthopedic Surgery [facility] 160 [address] [facility] [address] [place] [phone] Davis Phelan MD booking sx 09/13/2024 [facility] [address] [place] [phone] Davis Muniz MD PT-1 09/12/2024 Telephone Neurosurgery [facility] 175 [facility] [address] [place] [phone] Melissa Brian MD Advice Only (Antibiotic for dental procedure) 09/05/2024 3:34 PM EST - 09/05/2024 11:59 PM EST Hospital Encounter [facility] CT Scan [address] [place] [address] Primary osteoarthritis, right shoulder; Unspecified disorder of synovium and tendon, right shoulder Discharge Disposition: Home or Self Care from Last 3 Months Immunizations Name Administration Dates Next Due Influenza Quadravalent, MDCK , 0.5ml, preservative free (Flucelvax) 6mo and older 09/08/2020 Influenza Quadravalent, MDCK , 0.5ml, with preservative (Flucelvax) 6mo and older 07/28/2018,06/29/2017 Influenza trivalent, 0.5mL, preservative free (Fluarix; FluLaval; Fluzone) ages 6mo and older (Afluria) 3 years and older 07/23/2016 Pneumococcal conjugate 13 va lent (Prevnar 13, PCV13) 2mo and older 02/08/2019 Pneumococcal polysaccharide 23 valent (Pneumovax 23) 2yo and older 11/07/2017 Tdap Tetanus diptheria acell ular pertussis (Boostrix; Adacel) 7yo and older 09/08/2020 Surgical History Surgery Date Site/Laterality Comments OTHER SURGICAL HISTORY 05/20/2017 PROCEDURE: COLON CA SCRN NOT HI RSK IND; COMMENT: tics and hemorrhoids; repeat under propofol in 10 yrs SHOULDER ARTHROSCOPY 11/24/2021 Right PROCEDURE: RI SURGICAL ARTHROSCOPY SHOULDER W/LSS&RESCJ ADS; COMMENT: shoulder Labral Debridement and Glenohumeral Debridment with Dr. Phelan OTHER SURGICAL HISTORY 05/09/2023 PROCEDURE: RI CRANIEC TREPHINE BONE FLP BRAIN TUMOR SUPRTENTOR; COMMENT: Right pteronial craniotomy for resection of olfactory groove meningioma, Dr. Brian, path: Grade 1 meningioma Medical History Medical History Date Comments Primary osteoarthritis of both knees 08/12/2016 DX:Primary osteoarthritis of both knees Seizure disorder (CMS/HCC) 03/04/2016 DX:Se izure disorder (HCC); COMMENT: Occurring after closed head injuries Uncomplicated asthma 02/07/2017 DX:Uncompli cated asthma Gout 03/04/2016 DX:Gout Diabetes mellitus type 2, co ntrolled, with complications (CMS/HCC) DX:Diabetes mellitus type 2, controlled, with complications (HCC) Esophageal reflux DX:Esophageal reflux Hyperlipidemia DX:Hyperlipidemi a Constipation Family History Medical History Relation Name Comments No Known Problems Aunt No Known Problems Brother 1 No Known Problems Brother 2 No Known Problems Father No Known Problems Maternal Grandfather No Known Problems Maternal Grandmother No Known Problems Mother No Known Problems Other No Known Problems Paternal Grandfather No Known Problems Paternal Grandmother No Known Problems Sister 1 No Known Problems Sister 2 No Known Problems Sister 3 No Known Problems Uncle Blindness Neg Hx Cataracts Neg Hx Glaucoma Neg Hx Macular degeneration Neg Hx Strabismus Neg Hx Relation Name Status Comments Aunt Brother 1 Alive Brother 2 Alive Father Alive Maternal Grandfather Maternal Grandmother Mother Other Paternal Grandfather Paternal Grandmother Sister 1 Alive Sister 2 Alive Sister 3 Alive Uncle Social History Tobacco Use Types Packs/Day Years Used Date Smoking Tobacco: Former Cigarettes Q uit: 03/04/2014 Smokeless Tobacco: Never Tobacco Cessation:Counseling Given: Not Answered Alcohol Use Standard Drinks/Week Comments Yes 0 (1 standard drink = 0.6 oz pur e alcohol) Sex and Gender Information Value Date Recorded Sex Assigned at Not on file Gender Identity Not on file Sexual Orientation Not on file Job Start Date Occupation Industry Not on file Not on file Not on file Obstetrics History Last Filed Vital Signs Vital Sign Reading Time Taken Comments Blood Pressure 122/73 11/19/2024 9:53 AM EST aut o Pulse 83 11/19/2024 9:53 AM EST Temperature 37.1 ??C (98.8 ??F) 10/04/2024 12:[address] Respiratory Rate - - Oxygen Saturation 97% 10/04/2024 12:44 PM EST Inhaled Oxygen Concentration - - Weight 133 kg (292 lb 9.6 oz) 11/19/2024 9:53 AM EST Height 185.4 cm (6' 1 ) 11/19/2024 9:53 AM EST Body Mass Index 38.6 11/19/2024 9:53 AM EST Plan of Treatment Upcoming Encounters Date Type Department Care Team (Latest Contact Info) Description 12/10/2024 8:30 AM EST Office Visit [address] [place] [phone] Mundo Richardson MD 175 [facility] 150 [place] [phone] 12/11/2024 7:30 AM EST Hospital Encounter [facility] Main OR [address] [place] [phone] Davis Phelan MD [address] [address] 12/11/2024 7:30 AM EST - 12/11/2024 10:00 AM EST Surgery [facility] Main OR [address] [place] [phone] Davis Phelan MD [address] [address] ARTHROPLASTY SHOULDER REVERSE APPROACH RIGHT [[id number] (CPT??)] 12/25/2024 2:30 PM EST Consult Nephrology - [address] [phone] Sergey Mesa MD 100 [facility] 200 [place] [phone] 12/26/2024 11:30 AM EST Office Visit Orthopedic Surgery [facility] 160 175 [facility] 160 [place] [phone] Davis Phelan MD [address] [address] Scheduled Procedures Name Priority Associated Diagnoses Date/Ti me ARTHROPLASTY SHOULDER REVERSE APPROACH BILATERAL Rotator cuff arthropathy, right 12/11/2024 7:30 AM EST Health Maintenance Due Date Last Done Comments Diabetes: Annual Foot Exam 1977 Hepatitis B Vaccines (1 of 3 - 19+ 3-dose series) 1986 Zoster Vaccines (1 of 2) 2017 Depression Screening 10/02/2022 HIV Screening 10/02/2022 Social Influencers of Health Screening 10/02/2022 Diabetes: Annual Urine Albumin-Creatinine Ratio (uACR) 01/12/2024 01/11/2023 COVID-19 Vaccine ( season) 2024 Influenza Vaccine (#1) 2024 , 07/28/2018, 06/29/2017, Additional history exists Diabetes: Annual Retina Eye Exam 10/10/2024 10/10/2023 Diabetes: Blood Sugar Control Test (HGBA1C) 11/21/2024 05/21/2024, 05/21/2024 Diabetes: Annual GFR (Glomerular Filtration Rate) 10/04/2025 10/04/2024, 05/21/2024, 05/21/2024 Colorectal Cancer Screening: Colonoscopy 05/20/2027 05/20/2017 Cholesterol Screening (Lipid Panel) 05/21/2029 05/21/2024, 05/21/2024 DTaP,Tdap,and Td Vaccines (2 - Td or Tdap) 09/08/2030 09/08/2020 Pneumococcal Vaccine: Pediatrics (0 to 5 Years) and At-Risk Patients (6 to 64 Years) (3 of 3 - PPSV23 or PCV20) 2032 02/08/2019, 11/07/2017 Hepatitis C Screening Completed 03/11/2017 HIB Vaccines Aged Out No longer eligi ble based on patient's age to complete this topic HPV Vaccines Aged Out No longer eligi ble based on patient's age to complete this topic Hepatitis A Vaccines Aged Out No long er eligible based on patient's age to complete this topic IPV Vaccines Aged Out No longer eligi ble based on patient's age to complete this topic MMR Vaccines Aged Out No longer eligi ble based on patient's age to complete this topic Meningococcal ACWY Vaccine Aged Out N o longer eligible based on patient's age to complete this topic RSV Immunization Patients Under 20 months Aged Out No longer eligible based on patient's age to complete this topic Varicella Vaccines Aged Out No longer eligible based on patient's age to complete this topic Procedures Procedure Name Priority Date/Time Associated Diagnosis Comments ECG 12-LEAD Routine 11/19/2024 12:00 PM EST Pre-operative clearance Uncontrolled type 2 diabetes mellitus with hyperglycemia (CMS/HCC) CBC WITH AUTO DIFFERENTIAL Routine 10/04/2024 1:29 PM EST Meningioma, cerebral (CMS/HCC) Chronic migraine without aura with status migrainosus, not intractable CBC AND DIFFERENTIAL Routine 10/04/2024 1:29 PM EST Meningioma, cerebral (CMS/HCC) Chronic migraine without aura with status migrainosus, not intractable VITAMIN B12 Routine 10/04/2024 1:29 PM EST Meningioma, cerebral (CMS/HCC) Chronic migraine without aura with status migrainosus, not intractable VITAMIN D 25 HYDROXY Routine 10/04/2024 1:29 PM EST Meningioma, cerebral (CMS/HCC) Chronic migraine without aura with status migrainosus, not intractable CREATININE, SERUM Routine 10/04/2024 1:2 9 PM EST Meningioma, cerebral (CMS/HCC) Chronic migraine without aura with status migrainosus, not intractable BUN Routine 10/04/2024 1:29 PM EST Meningioma, cerebral (CMS/HCC) Chronic migraine without aura with status migrainosus, not intractable CT UPPER EXTREMITY WO CONTRAST RIGHT Routine 09/05/2024 4:19 PM EST Primary osteoarthritis, right shoulder Unspecified disorder of synovium and tendon, right shoulder HEMOGLOBIN A1C Routine 05/21/2024 LIPID PANEL Routine 05/21/2024 DIABETES EYE EXAM Routine 10/10/2023 URINE ALBUMIN CREATININE RATIO Routine 01/11/2023 COLONOSCOPY Routine 05/20/2017 HEPATITIS C SCREENING Routine 03/11/2017 from Last 3 Months or Most Recently Relevant to Health Maintenance Results * ECG 12 lead (11/19/2024 12:00 PM EST) Narrative Davis Muniz MD - 11/19/2024 12:00 PM EST EKG reviewed by Dr Muniz Davis Muniz MD ECG ORDERABLES * (ABNORMAL) CBC auto differential (10/04/2024 1:29 PM EST) WBC 6.7 4.8 - 10.8 K/mcL LAB HEMETOLOGY METHOD 10/04/2024 7:[address] [facility] RBC 5.00 4.50 - 5.50 M/mcL LAB HEMETOLOGY METHOD 10/04/2024 7:[address] [facility] Hemoglobin 13.7 13.5 - 17.5 g/dL LAB HEMETOLOGY METHOD 10/04/2024 7:[address] [facility] Hematocrit 40.6(L) 42.0 - 54.0 % LAB HEMETOLOGY METHOD 10/04/2024 7:[address] [facility] MCV 81.4 79.0 - 98.0 FL LAB HEMETOLOGY METHOD 10/04/2024 7:[address] [facility] MCH 27.5 27.0 - 32.0 pcg LAB HEMETOLOGY METHOD 10/04/2024 7:[address] [facility] MCHC 33.7 32.0 - 37.0 g/dL LAB HEMETOLOGY METHOD 10/04/2024 7:[address] [facility] RDW 14.3 11.0 - 15.0 % LAB HEMETOLOGY METHOD 10/04/2024 7:[address] [facility] Platelets 278 130 - 400 K/mcL LAB HEMETOLOGY METHOD 10/04/2024 7:[address] [facility] MPV 11.1(H) 7.0 - 11.0 FL LAB HEMETOLOGY METHOD 10/04/2024 7:[address] [facility] NRBC 0.0 <1.0 % LAB HEMETOLOGY METHOD 10/04/2024 7:[address] [facility] NRBC Absolute 0.00 <0.10 K/mcL LAB HEMETOLOGY METHOD 10/04/2024 7:[address] [facility] Neutrophils Relative 66.6 % LAB HEMETOLOGY METHOD 10/04/2024 7:[address] [facility] Lymphocytes Relative 22.9 % LAB HEMETOLOGY METHOD 10/04/2024 7:[address] [facility] Monocytes Relative 7.0 % LAB HEMETOLOGY METHOD 10/04/2024 7:[address] [facility] Eosinophils Relative 2.8 % LAB HEMETOLOGY METHOD 10/04/2024 7:[address] [facility] Basophils Relative 0.3 % LAB HEMETOLOGY METHOD 10/04/2024 7:[address] [facility] Immature Granulocytes Relative 0.4 % LAB HEMETOLOGY METHOD 10/04/2024 7:[address] [facility] Neutrophils Absolute 4.48 1.50 - 7.00 K/mcL LAB HEMETOLOGY METHOD 10/04/2024 7:[address] [facility] Lymphocytes Absolute 1.54 1.00 - 5.00 K/mcL LAB HEMETOLOGY METHOD 10/04/2024 7:[address] [facility] Monocytes Absolute 0.47 0.20 - 1.00 K/mcL LAB HEMETOLOGY METHOD 10/04/2024 7:[address] [facility] Eosinophils Absolute 0.19 0.00 - 0.50 K/mcL LAB HEMETOLOGY METHOD 10/04/2024 7:[address] [facility] Basophils Absolute 0.02 0.00 - 0.20 K/mcL LAB HEMETOLOGY METHOD 10/04/2024 7:00 PM EST [facility] Immature Granulocytes Absolute 0.03 0.00 - 0.03 K/mcL LAB HEMETOLOGY METHOD 10/04/2024 7:00 PM EST [facility] Blood Venous blood specimen / Unknown Venipuncture / Unknown 10/04/2024 1:29 PM EST 10/04/2024 1:29 PM EST Mundo Richardson MD LAB BLOOD ORDERA BLES [facility] [address] [place] [address], * (ABNORMAL) Creatinine (10/04/2024 1:29 PM EST) Creatinine 1.38(H) 0.70 - 1.30 mg/dL LAB CHEMISTRY METHOD 10/04/2024 7:32 PM EST [facility] eGFR 60 >=60 mL/min/1. 73m2 LAB CHEMISTRY METHOD 10/04/2024 7:32 PM EST [facility] Comment:Calculation based on the??Chronic Kidney Disease Epidemiology Collaboration (CKD-EPI) equation refit??without adjustment for race. Blood Venous blood specimen / Unknown Venipuncture / Unknown 10/04/2024 1:29 PM EST 10/04/2024 1:29 PM EST Mundo Richardson MD LAB BLOOD ORDERA BLES [facility] [address] [place] [address], * (ABNORMAL) Vitamin D 25 hydroxy (10/04/2024 1:29 PM EST) Vit D, 25-Hydroxy 10.3(L) 30.0 - 80.0 ng/mL LAB CHEMISTRY METHOD 10/04/2024 7:07 PM EST [facility] Blood Venous blood specimen / Unknown Venipuncture / Unknown 10/04/2024 1:29 PM EST 10/04/2024 1:29 PM EST Mundo Richardson MD LAB BLOOD ORDERA BLES Performing Organization Address City/[facility]/ZIP Co de Phone Number [facility] [address] [place] [address], [place] [phone] * BUN (10/04/2024 1:29 PM EST) BUN 10 5 - 25 mg/dL LAB CHEMISTRY METHOD 10/04/2024 7:01 PM EST [facility] Blood Venous blood specimen / Unknown Venipuncture / Unknown 10/04/2024 1:29 PM EST 10/04/2024 1:29 PM EST Mundo Richardson MD LAB BLOOD ORDERA BLES Performing Organization Address [facility]/ZIP Co de Phone Number [facility] [address] [place] [address], [place] [phone] * Vitamin B12 (10/04/2024 1:29 PM EST) Vitamin B-12 429 250 - 900 pcg/mL LAB CHEMISTRY METHOD 10/04/2024 7:32 PM EST [facility] Blood Venous blood specimen / Unknown Venipuncture / Unknown 10/04/2024 1:29 PM EST 10/04/2024 1:29 PM EST Mundo Richardson MD LAB BLOOD ORDERA BLES Performing Organization Address City/[facility]/ZIP Co de Phone Number [facility] [address] [place] [address], [place] [phone] * CT Upper Extremity wo Contrast Right (09/05/2024 4:19 PM EST) Anatomical Region Laterality Modality Upper Extremities, Humerus Right Compu paramjit Tomography 09/06/2024 11:0 0 AM EST Impressions 09/06/2024 11:06 AM EST Degenerative changes of the right shoulder. -------- FINAL REPORT -------- Dictated By: Darryl Montoya Dictated Date: 09/06/2024 11:00 ET Assigned Physician: Darryl Montoya Reviewed and Electronically Signed By: Darryl Montoya Signed Date: 09/06/2024 11:06 ET Workstation ID: [id number] Transcribed By: Self Edit Transcribed Date: 09/06/2024 11:00 ET Narrative 09/06/2024 11:[address] right upper extremity without contrast HISTORY: Blueprint protocol. ??Right shoulder. COMPARISON: MRI of the right shoulder July 2024. TECHNIQUE: Noncontrast CT was performed of the right upper extremity. ??Reformatted images were provided. DOSE: CTDIvol: 40.5mGy. ??Total exam DLP: 1055.4mGy-cm FINDINGS: Degenerative changes of the glenohumeral joint with loss of joint space and mild osteophyte formation. ??No significant effusion. ??Minimal degenerative changes of the acromioclavicular joint are noted. ??Alignment is maintained. ??No acute deformity. Soft tissues are not ideally evaluated on CT examination, but no full-thickness tear of the rotator cuff is identified. ??Surrounding soft tissues appear within normal limits without lymphadenopathy. Limited views of the right chest appear within normal limits. Procedure Note Darryl Montoya MD - 09/06/2024 CT right upper extremity without contrast HISTORY: Blueprint protocol. Right shoulder. COMPARISON: MRI of the right shoulder July 2024. TECHNIQUE: Noncontrast CT was performed of the right upper extremity.Reformatted images were provided. DOSE: CTDIvol: 40.5mGy. Total exam DLP: 1055.4mGy-cm FINDINGS: Degenerative changes of the glenohumeral joint with loss of joint spaceand mild osteophyte formation. No significant effusion. Minimaldegenerative changes of the acromioclavicular joint are noted. Alignmentis maintained. No acute deformity. Soft tissues are not ideally evaluated on CT examination, but nofull-thickness tear of the rotator cuff is identified. Surrounding softtissues appear within normal limits without lymphadenopathy. Limited views of the right chest appear within normal limits. IMPRESSION: Degenerative changes of the right shoulder. -------- FINAL REPORT -------- Dictated By: Darryl Montoya Dictated Date: 09/06/2024 11:00 ET Assigned Physician: Darryl Montoya Reviewed and Electronically Signed By: Darryl Montoya Signed Date: 09/06/2024 11:06 ET Workstation ID: [id number] Transcribed By: Self Edit Transcribed Date: 09/06/2024 11:00 ET Davis Phelan MD IMG CT PROCEDURES * (ABNORMAL) Hemoglobin A1c (05/21/2024) [facility] Hemoglobin A1C 6.8(A) 6.5 % Blood Venous blood specimen / Unknown Historical Provider LAB BLOOD ORDERAB LES * Lipid panel (05/21/2024) [facility] LDL/HDL Ratio 3 0 - 4 Triglycerides 110 0 - 150 mg/dL Cholesterol 182 0 - 200 mg/dL HDL 68 40 mg/dL LDL Cholesterol 92 0 - 100 mg/dL Blood Venous blood specimen / Unknown Historical Provider LAB BLOOD ORDERAB LES * Diabetes Eye Exam (10/10/2023) [facility] Diabetes: Annual Retina Eye Exam Abstracted Historical Provider [facility] Urine Albumin Creatinine Ratio (01/11/2023) [facility] Urine Albumin Creatinine Ratio Abstracted Historical Provider MD KAMALA BRADFORD [facility] Colonoscopy (05/20/2017) [facility] Colonoscopy Normal, Abstracted Anatomical Region Laterality Modality Other Historical Provider MD KAMALA Waggoner * Hepatitis C Screening (03/11/2017) Hepatitis C Screening Abstracted Historical Provider MD KAMALA Waggoner from Last 3 Months or Most Recently Relevant to Health Maintenance Advance Directives Documents on File Type Date Recorded Patient Product Delivery Specialist Expl anation Health Care Decision (hx) 08/30/2019 AD FRAUSTO DIRECTIVE Health Care Decision (hx) 08/30/2019 AD FRAUSTO DIRECTIVE Health Care Decision (hx) 08/30/2019 AD FRAUSTO DIRECTIVE Health Care Decision (hx) 08/30/2019 AD FRAUSTO DIRECTIVE Health Care Decision (hx) 08/30/2019 AD FRAUSTO DIRECTIVE Health Care Decision (hx) 08/30/2019 AD FRAUSTO DIRECTIVE Health Care Decision (hx) 08/30/2019 AD FRAUSTO DIRECTIVE Health Care Decision (hx) 08/30/2019 AD FRAUSTO DIRECTIVE Health Care Decision (hx) 08/30/2019 AD FRAUSTO DIRECTIVE Health Care Decision (hx) 08/30/2019 AD FRAUSTO DIRECTIVE Health Care Decision (hx) 08/30/2019 AD FRAUSTO DIRECTIVE Health Care Decision (hx) 08/30/2019 AD FRAUSTO DIRECTIVE Care Teams Game Moderator Relationship Specialty Start Date End Date Davis Muniz MD [address] [place] [id number] PCP - General Internal Medicine 08/31/24
--- OUTSIDE RECORDS SUMMARY | 2024-11-22 12:15 | XMS_ITS | Encounter Summary ---
Author Organization [facility] Address [address] [place] [address] Care Team Providers Care Blade Balancer Name Role Phone Davis Muniz MD Primary Care Provider [phone] Reason for Visit * Reason Comments Pre-op Exam Left lower abd pain a week ago for 3 days Encounter Details Date Type Department Care Team (Late st Contact Info) Description 11/19/2024 10:00 AM EST [facility] [address] [place] [phone] Davis Muniz MD [address] [place] [id number] Uncontrolled type 2 diabetes mellitus with hyperglycemia (CMS/HCC) (Primary Dx); Chronic right shoulder pain; Pre-operative clearance; Mild intermittent asthma without complication Social History Tobacco Use Types Packs/Day Years [...] on file documented as of this encounter Last Filed Vital Signs Vital Sign Reading Time Taken Comments Blood Pressure 122/73 11/19/2024 9:53 AM EST aut o Pulse 83 11/19/2024 9:53 AM EST Temperature - - Respiratory Rate - - Oxygen Saturation - - Inhaled Oxygen Concentration - - Weight 133 kg (292 lb 9.6 oz) 11/19/2024 9:53 AM EST Height 185.4 cm (6' 1 ) 11/19/2024 9:53 AM EST Body Mass Index 38.6 11/19/2024 9:53 AM EST documented in this encounter Progress Notes * Davis Muniz MD - 11/19/2024 10:00 AM EST CHIEF COMPLAINT: Chief Complaint Patient presents with Pre-op Exam Left lower abd pain a week ago for 3 days IDENTIFIER: Shadi Barajas. 59 y.o.. HPI: Patient presents office today to obtain medical clearance prior to undergoing right shoulder surgery. He feels well. He is somewhat anxious but looking forward to feeling better. The patient does have a longstanding history for diabetes asthma seizure disorder this has remained stable. He did have recent blood work. No chest pain shortness of breath or palpitations reported he is able to walk up and down stairs without any symptoms. PAST MEDICAL HISTORY: Past Medical History: Diagnosis Date Constipation Diabetes mellitus type 2, controlled, with complications (CMS/[facility]) DX:Diabetes mellitus type 2, controlled, with complications ([facility]) Esophageal reflux DX:Esophageal reflux Gout 03/04/2016 DX:Gout Hyperlipidemia DX:Hyperlipidemia Primary osteoarthritis of both knees 08/12/2016 DX:Primary osteoarthritis of both knees Seizure disorder (CMS/HCC) 03/04/2016 DX:Seizure disorder ([facility]); COMMENT: Occurring after closed head injuries Uncomplicated asthma 02/07/2017 DX:Uncomplicated asthma PAST SURGICAL HX: Past Surgical History: Procedure Laterality Date OTHER SURGICAL HISTORY 05/20/2017 PROCEDURE: COLON CA SCRN NOT HI RSK IND; COMMENT: tics and hemorrhoids; repeat under propofol in 10yrs OTHER SURGICAL HISTORY 05/09/2023 PROCEDURE: IA CRANIEC TREPHINE BONE FLP BRAIN TUMOR SUPRTENTOR; COMMENT: 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 Brian, path: Grade 1 meningioma SHOULDER ARTHROSCOPY Right 11/24/2021 PROCEDURE: IA SURGICAL ARTHROSCOPY SHOULDER W/LSS&RESCJ ADS; COMMENT: shoulder Labral Debridement and Glenohumeral Debridment with Dr. Phelan SOCIAL HISTORY: FAMILY HISTORY: Family History Problem Relation Name Age of Onset No Known Problems Brother No Known Problems Brother No Known Problems Sister No Known Problems Sister No Known Problems Sister No Known Problems Father No Known Problems Mother No Known Problems Maternal Grandfather No Known Problems Maternal Grandmother No Known Problems Paternal Grandfather No Known Problems Paternal Grandmother No Known Problems Aunt No Known Problems Uncle No Known Problems Other Blindness Neg Hx Cataracts Neg Hx Glaucoma Neg Hx Macular degeneration Neg Hx Strabismus Neg Hx MEDICATIONS DISCONTINUED/REORDERED: There are no discontinued medications. ACTIVE MEDICATIONS: Current Outpatient Medications on File Prior to Visit Medication Sig Dispense Refill albuterol HFA (Ventolin HFA) 90 mcg/actuation inhaler INHALE TWO PUFFS BY MOUTH FOUR TIMES A DAY ASNEEDED FOR WHEEZE COUGH OR FOR SHORTNESS OF BREATH allopurinoL (ZYLOPRIM) 300 mg tablet Take 1 tablet (300 mg total) by mouth 1 (one) time each day. amitriptyline (ELAVIL) 25 mg tablet Take 1 tablet (25 mg total) by mouth 1 (one) time each day. 30 tablet 2 atorvastatin (LIPITOR) 80 mg tablet Take 1 tablet (80 mg total) by mouth daily. beclomethasone dipropionate 40 mcg/actuation HFA aerosol inhaler Inhale 2 Puffs into the lungs 2 times daily. zirsxbxhsm-mkwnmlgmqrabq-bdlozolj 50-300-40 mg capsule Take by mouth. FREESTYLE LANCETS [facility] glucose blood test strip lamoTRIgine (LaMICtal) 200 mg tablet Take 1 tablet (200 mg total) by mouth 2 (two) times a day. pantoprazole (PROTONIX) 40 mg EC tablet Take 1 tablet (40 mg total) by mouth 1 (one) time each day. sildenafiL (VIAGRA) 100 mg tablet TAKE 1 TABLET NEEDED No current facility-administered medications on file prior to visit. ALLERGIES: Allergies Allergen Reactions Amoxicillin Swelling Pollen Extracts ROS: Constitutional: no weakness fever/ sweats, or weight change Eyes: no blurred vision,pain or discharge ENT: no mouth pain,oral bleeding, congestion or discharge Respiratory: no shortness of breath, cough or wheezing Cardiovascular:no chest pain or palpitations, no orthopnea or PND GI: no nausea, vomiting or diarrhea; no rectal bleeding or dark stools : no dysuria or frequency; no nocturia or hesitancy PHYSICAL EXAM: Vitals: 11/19/24 0953 BP: 122/73 Pulse: 83 BMI PLAN BMI Body mass index is 38.6 kg/m??. General: the patient is in no acute distress.A & Ox 3 Head/Neck neck supple. Lungs: clear to percussion and auscultation. Heart: regular rhythm Abdominal exam; positive bowel sounds; soft, Extremities: no cyanosis, clubbing or edema. LABS: EKG by my reading normal sinus rhythm unchanged from previous tracing borderline T wave abnormalities IMPRESSION: Encounter Diagnoses Name Primary? Chronic right shoulder pain Pre-operative clearance Uncontrolled type 2 diabetes mellitus with hyperglycemia ([facility]) Yes Mild intermittent asthma without complication PLAN: Preop clearance patient is medically stable for proposed procedure Uncontrolled diabetes is stable with recent A1c at 6.8% Mild intermittent asthma stable continue albuterol as needed No orders of the defined types were placed in this encounter. Additional Orders: None Davis Muniz MD documented in this encounter Plan of Treatment Upcoming Encounters Date Type Department Care Team (Latest Contact Info) Description 12/10/2024 8:30 AM EST Office Visit [facility] [address] [phone] Mundo Richardson MD [address] [phone] 12/11/2024 7:30 AM EST Hospital Encounter [facility] [place] [address] [place] [phone] Davis Phelan MD [address] [address] 12/11/2024 7:30 AM EST - 12/11/2024 10:00 AM EST Surgery [facility] OR [address] [place] [phone] Davis Phelan MD [address] [address] ARTHROPLASTY SHOULDER REVERSE APPROACH RIGHT [[id number] (CPT??)] 12/25/2024 2:30 PM EST Consult Nephrology - [facility] [address] [place] [address] Sergey Mesa MD [address] [place] [address] 12/26/2024 11:30 AM EST Office Visit Orthopedic Surgery - [place] [address] [place] [address] Davis Phelan MD [address] [place] [address] Scheduled Procedures Name Priority Associated Diagnoses Date/Ti me ARTHROPLASTY SHOULDER REVERSE APPROACH BILATERAL Rotator cuff arthropathy, right 12/11/2024 7:30 AM EST documented as of this encounter Procedures Procedure Name Priority Date/Time Associated Diagnosis Comments ECG 12-LEAD Routine 11/19/2024 12:00 PM EST Pre-operative clearance Uncontrolled type 2 diabetes mellitus with hyperglycemia (CMS/HCC) documented in this encounter Results * ECG 12 lead (11/19/2024 12:00 PM EST) Narrative Davis Muniz MD - 11/19/2024 12:00 PM EST EKG reviewed by Dr Muniz Davis Muniz MD ECG ORDERABLES documented in this encounter Visit Diagnoses Diagnosis Rotator cuff arthropathy, right- Primary Uncontrolled type 2 diabetes mellitus with hyperglycemia (CMS/HCC)- Primary Chronic right shoulder pain Pain in joint, shoulder region Pre-operative clearance Unspecified pre-operative examination Mild intermittent asthma without complication Rotator cuff arthropathy, right documented in this encounter Care Teams Blade Balancer Relationship Specialty Start Date End Date Davis Muniz MD [address] [place] [address] PCP - General Internal Medicine 08/31/24 documented as of this encounter
--- OUTSIDE RECORDS SUMMARY | 2024-11-22 12:15 | XMS_ITS | Encounter Summary ---
Author Organization [facility] Address [address] [place] [address] Care Team Providers Care Change Agent Name Role Phone Davis Muniz MD Primary Care Provider Reason for Referral * (Routine) - Incomplete Specialty Diagnoses / Procedures Referred By Contac t Referred To Contact Physical Therapy Diagnoses Glenohumeral arthritis, right Rotator cuff dysfunction, right Davis Phelan MD 175 [facility] [address] [place] [address] Referral ID Status Reason Start Date Expiration Date Visits Requested Visits Authorized [id number] Incomplete Specialty Services Required 11/19/2024 11/19/2025 1 1 Scheduling Instructions Start within 2 weeks of surgery. DOS 12/11/24 Reason for Visit * Reason Onset Date Comments Post op PT Order 11/19/2024 Encounter Details Date Type Department Care Team ([facility] st Contact Info) Description 11/19/2024 Telephone Orthopedic Surgery [facility] 160 175 [facility] 160 [place] [phone] Dinorah Jacobs MA Post op PT Order Social History Tobacco Use Types Packs/Day Years [...] as of this encounter Progress Notes * Dinorah Jacobs MA - 11/19/2024 2:44 PM EST PT order in [facility]. [facility] will call pt to schedule appt. Protocol, Reverse Total Shoulder Replacement, scanned in [facility] under Media. * Andra Sinha - 11/19/2024 12:00 PM EST Pt would like to go to [address] [place] [address] documented in this encounter Plan of Treatment Upcoming Encounters Date Type Department Care Team (Latest Contact Info) Description 12/10/2024 8:30 AM EST Office Visit [facility] [address] [phone] Mundo Richardson MD [address] [phone] 12/11/2024 7:30 AM EST Hospital Encounter [facility] OR [address] [place] [phone] Davis Phelan MD [address] [address] 12/11/2024 7:30 AM EST - 12/11/2024 10:00 AM EST Surgery [facility] OR [address] [place] [phone] Davis Phelan MD [address] [address] ARTHROPLASTY SHOULDER REVERSE APPROACH RIGHT [[id number] (CPT??)] 12/25/2024 2:30 PM EST Consult Nephrology - [facility] [address] [place] [address] Sergey Mesa MD 100 [facility] 200 [place] [address] 12/26/2024 11:30 AM EST Office Visit Orthopedic Surgery - [place] 160 175 [facility] 160 [place] [address] Davis Phelan MD 175 [facility] 160 [place] [address] Scheduled Procedures Name Priority Associated Diagnoses Date/Ti me ARTHROPLASTY SHOULDER REVERSE APPROACH BILATERAL Rotator cuff arthropathy, right 12/11/2024 7:30 AM EST Scheduled Referrals Name Type Priority Associated Diagnoses Order Schedule Ambulatory referral to Physical Therapy and Athletic Training Outpatient Referral Routine Glenohumeral arthritis, right Rotator cuff dysfunction, right 1 Occurrences starting 11/19/2024 until 11/19/2025 documented as of this encounter Visit Diagnoses Diagnosis Rotator cuff arthropathy, right- Primary Glenohumeral arthritis, right- Primary Rotator cuff dysfunction, right Rotator cuff arthropathy, right documented in this encounter Care Teams Change Agent Relationship Specialty Start Date End Date Davis Muniz MD [address] [place] [address] PCP - General Internal Medicine 08/31/24 documented as of this encounter
--- OUTSIDE RECORDS SUMMARY | 2024-11-22 12:15 | XMS_ITS ---
Author Name [facility] Organization Unknown History of Medication Use Medication Directions Dispensed Refills Start Date End Date Stat pantoprazole (PROTONIX) 40 MG tablet Take 1 tablet (40 mg total) by mouth every morning on an empty stomach. active Problems Problem Status Onset Date Problem Type Date of Resoluti on Source Seizure (HCC) active EncounterDiagnosisAct CTTHMSRH Medication overuse headache active EncounterDiagnosisAct CTTHMS RH
== END 2024-11-22 09:40 | disposition home or self-care (01) ==
LOC: HO.HUSH 09:12
PROVIDERS: PCP Internal Medicine; Visit Provider Urology
DX: E11.69 Type 2 diabetes mellitus with other specified complication (principal); N52.1 Erectile dysfunction due to diseases classified elsewhere
CPT/HCPCS: 99213

== ENCOUNTER 2025-06-18 09:08 | Outpatient (AMB) | payer OTHER, SELFPAY ==
--- NOTE | 2025-06-18 09:18 | MHC.OFFVIS ---
Intake Visit Reasons: follow up Intake Note: Patient is present for: follow up Urology Medication:SILDENAFIL,ALLOPURINOL, tadalafil Blood Thinner:NONE Band Salvager Required: No Accompanied by: Self / Same As Patient Allergies amoxicillin Allergy (Unknown, Verified 06/18/25 09:19) Swelling Penicillins Allergy (Unknown, Verified 06/18/25 09:19) Unknown HPI Comments Details: Shadi JONES is a very pleasant male. They are a patient of Dr Muniz. He seen for the following conditions - erectile dysfunction Has remained on daily 10 mg Cialis with on demand sildenafil Check baseline hormonal labs for next visit Refills provided Erectile dysfunction: He presents today for for continued evaluation and management of erectile dysfunction - Discussed generic Viagra prescription - Can try up to 200mg if has no side effects - offered MICHELINE and injections. Symptoms have been present for/since progressive over several years starting 2013. Current treatment includes Viagra/sildenafil. Treatment side effects include none. At this time he experiences erections 9/17 are partial and insufficient for vaginal penetration, that undergo detumesence prior to penetration, ANGELA 8-11 Moderate ED - Respond well to Viagra. Nocturnal erections do occur. Currently they are in a stable relationship. Associated problems hypertension No diabetes Yes dyslipidemia Yes Medications include(s) antihypertensive medication, insulin. Overall he is satisfied with the current management. Therapeutic plan includes increasing dose of oral medication PFSH Medical History HLD (hyperlipidemia) Primary osteoarthritis of knees, bilateral Nonalcoholic fatty liver disease Hx of urinary tract infection Chronic knee pain GERD (gastroesophageal reflux disease) Gout Seizures Hypercholesterolemia Diabetes mellitus, type II OA (osteoarthritis) Asthma Fatty liver Erectile dysfunction due to arterial insufficiency Surgical History S/P resection of meningioma History of shoulder surgery History of colonoscopy Social History Alcohol intake: never Patient Tobacco Use Status: Former Tobacco user Review of Systems Const Denies chills and Denies fever(s) Card Reports no additional complaints and Denies syncope Resp Denies cough GI Denies abdominal pain and Denies heartburn Reports as per HPI and Denies change in libido Neuro Denies syncope Psych Denies change in libido Endo Denies change in libido Physical Exam Const General: cooperative, healthy appearing, comfortable and no acute distress Orientation/consciousness: patient oriented x3 HEENT Face and sinus: Yes normal facial exam Mouth: moist mucous membranes Neck Neck: Yes normal visual inspection, Yes full ROM and Yes trachea midline Chest Chest palpation & inspection: normal inspection of the chest Resp Effort & Inspection: normal respiratory effort, able to speak in complete sentences and no respiratory distress GI Inspection: Yes normal to inspection Back/Spine/Pelvis Cervical Spine: normal cervical lordosis Thoracic/Lumbar Spine: thoracic and lumbar spine normal to inspection Skin General skin exam: no rashes or lesions noted Neuro General: patient oriented x3, gait normal, tone normal and moves all extremities Extrem General: Yes normal to inspection and Yes capillary refill normal Assessment & Plan Assessment & Plan (1) Erectile dysfunction associated with type 2 diabetes mellitus: Code(s): E11.69 - Type 2 diabetes mellitus with other specified complication; N52.1 - Erectile dysfunction due to diseases classified elsewhere Category: Medical Plan Refills provided Lab work six-month Orders: Orders Testosterone, Total 6 Months E11. - Type 2 diabetes mellitus with other specified complication, N52.1 - Erectile dysfunction due to diseases classified elsewhere Prostate Specific Antigen 6 Months E11. - Type 2 diabetes mellitus with other specified complication, N52.1 - Erectile dysfunction due to diseases classified elsewhere Medications: Refilled sildenafil Take 30-60 minutes before intended activity 200 mg (2 x 100 mg) PO .P.r.n. 60 tabs 5RF 30 days E11.69 - Type 2 diabetes mellitus with other specified complication, N52.1 - Erectile dysfunction due to diseases classified elsewhere [facility]il [facility] [id number] [id number] 10 mg PO DAILY 90 tabs 1RF sexual activity 90 days E11.69 - Type 2 diabetes mellitus with other specified complication, N52.1 - Erectile dysfunction due to diseases classified elsewhere Patient Instructions: This note is constructed using voice recognition software. While every effort has been made to ensure accuracy cottage master errors may have been included. Imaging studies, laboratory and physical exam results were discussed and reviewed in detail. No major barriers to patient understanding were identified. An opportunity to ask questions regarding the treatment plan was provided. All questions were answered. The patient expressed understanding and agreement with the above treatment plan. The patient is aware they should contact our office by phone for worsening of their current condition or the appearance of new urologic symptoms. Compliance is encouraged with any medications and followup testing that is ordered. It is a privilege to participate in the urologic care of your patient. If you have any questions or concerns regarding treatment for the above conditions, or other urologic issues, please do not hesitate to contact me. The office telephone contact is [phone]. Sincerely, Dr Rito Fitzpatrick MD, MIN [facility] - Urology Compassionate Specialist Care for the Genitourinary System Coding Level of Care Code Est Pt Level 3 (13370) Complex EM visit Add On G2211 Diagnoses Erectile dysfunction associated with type 2 diabetes mellitus E11.69; N52.1
--- OUTSIDE RECORDS SUMMARY | 2025-06-18 09:30 | XMS_ITS | Clinical Summary ---
Author Organization [facility] Address [address] [place] [address] Care Team Providers Care Filer Helper Name Role Phone Davis Muniz MD Primary Care Provider [phone] Medications Medication Sig Dispensed Refills Start Date [...] o f 2) 2017 Influenza Vaccine (#1) 2025 0, 07/28/2018, 06/29/2017 DTap / Tdap / [...] Subscriber ID Effective Dates Phone Address Type [facility] [id number] 2021-10/16 [address] [address] [place] [address] MEDICAID [place] MED[place] MANA[place] [id number] 2024-Pre sent Medicaid MED[place]ID [place] [id number] 2024-Pr e sent [address] [place] [address] Medicaid MEDICAID [place] MNGED [facility] PLAN [id number] 2017-Yamileth marroquin [address] [address] [place] [address] Medicaid Care Teams Filer Helper Relationship Specialty Start Date End Date Davis Muniz MD PCP - General Internal Medicine 07/12/24
--- OUTSIDE RECORDS SUMMARY | 2025-06-18 09:30 | XMS_ITS ---
Author Organization 175 [facility] Address [address] [place] [address] Phone Care Team Providers Care Director Clinical Operations Name Role Phone Davis Muniz MD Primary Care Provider [phone] Community Health Worker Program Status:Ongoing (Active) Start date:02/19/2025 Enrollment date:02/19/2025 Enrollment reason:Referred by Care Team Overview Community Health Worker Program Case Team Name Relationship Phone Angelique Becerril Community Health Worker(Responsi ble Staff) Continued Care and Services Coordination
--- OUTSIDE RECORDS SUMMARY | 2025-06-18 09:30 | XMS_ITS | Clinical Summary ---
Author Organization [facility] Address [address] [place] [address] Phone Care Team Providers Care Sleep Technologist Name Role Phone Davis Muniz MD Primary Care Provider [phone] Allergies Active Allergy Reactions Criticality Noted Date Comments Amoxicillin Swelling 10/04/2017 Pollen Extracts 10/04/2024 Medications atorvastatin (LIPITOR) 80 mg tablet Take 1 tablet (80 mg total) by mouth daily. 03/13/20 24 Active lamoTRIgine (LaMICtal) 200 mg tablet Take 1 tablet (200 mg total) by mouth 2 (two) times a day. 03/07/20 23 Active albuterol HFA (Ventolin HFA) 90 mcg/actuation inhaler INHALE TWO PUFFS BY MOUTH FOUR TIMES A DAY NEEDED FOR WHEEZE COUGH OR FOR SHORTNESS OF BREATH 02/09/20 23 Active sildenafiL (VIAGRA) 100 mg tablet TAKE 1 TABLET NEEDED 09/05/20 20 Active beclomethasone dipropionate 40 mcg/actuation HFA aerosol inhaler Inhale 2 Puffs into the lungs 2 times daily. 09/08/20 20 Active FREESTYLE LANCETS MISC 09/08/20 20 Active glucose blood test strip 09/08/20 20 Active allopurinoL (ZYLOPRIM) 300 mg tablet TAKE 1 TABLET BY MOUTH EVERY DAY 90 tablet 1 12/03/19 25 Active SUMAtriptan (IMITREX) 100 mg tablet 1 po at onset of migraine. May repeat dose once in 2 hours if no relief. Do not exceed 2 doses in 24 hours. 9 tablet 5 01/08/20 25 Active amLODIPine (NORVASC) 5 mg tablet Take 1 tablet (5 mg total) by mouth 1 (one) time each day. 30 each 02/20/20 25 026 Active amitriptyline (ELAVIL) 50 mg tablet Take 1 tablet (50 mg total) by mouth 1 (one) time each day. 30 tablet 2 03/25/20 25 026 Active pantoprazole (PROTONIX) 40 mg EC tablet TAKE ONE TABLET BY MOUTH EVERY DAY 90 tablet 06/05/20 25 Active pantoprazole (PROTONIX) 40 mg EC tablet TAKE ONE TABLET BY MOUTH EVERY DAY 90 tablet 03/05/20 25 025 Discontinued Active Problems Problem Noted Date Diagnosed Date Morbid obesity with BMI of 4 0.0-44.9, adult ([facility] V24, [facility] V28) 09/03/2024 Chronic bilateral low back pain without sciatica 03/13/2024 Uncontrolled type 2 diabetes mellitus with hyperglycemia ([facility] V24, [facility] V28) 06/09/2022 External hemorrhoids 11/23/2017 Vasculogenic erectile dysfunction 06/06/2017 Fatty liver disease, nonalcoholic 04/12/2017 Uncomplicated asthma 02/07/2017 Primary osteoarthritis of both knees 08/12/2016 Chronic knee pain 03/30/2016 Pure hypercholesterolemia 03/05/2016 Gastroesophageal reflux disease without esophagi tis 03/04/2016 Gout 03/04/2016 Seizure disorder ([facility]/HCC V24, [facility] V28) 02/21 Overview (09/03/2024): Occurring after closed head injuries Resolved Problems Problem Noted Date Diagnosed Date Resolved Date S/P reverse total shoulder a rthroplasty, right 12/18/2024 02/19/2025 Rotator cuff arthropathy, right 09/24/2024 02/19/2025 Meningioma, cerebral ([facility]/ C V24, [facility] V28) 04/01/2023 02/19/2025 Overview (09/03/2024): Last Assessment & Plan: Mr. 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 He recovered well from surgery, has no issues with vision or with jaw pain chewing. He does report continued and nearly constant left-sided headache which has not responded to rhxv-qfj-egutcdy medication. On exam, his incision is well-healed with no temporal atrophy. PERRL, EOMI, VFF, face is symmetric, speech is clear and fluent, strength is full with normal gait. Review of the MRI of the brain with and without gadolinium at [facility] dated 04/30/2024 shows no residual or recurrent enhancement in the operative bed. There is no evidence of stroke, hemorrhage or hydrocephalus. Mr. Barajas is doing well from a postoperative standpoint but has persistent, unrelated headaches. I recommended either Fioricet or Cafergot [id number] and follow-up with his PCP if the headaches persist for further management or referral to neurology. We will continue with surveillance imaging for at least 10 years. Marijuana use 03/04/2016 02/19/2025 Encounters Date Type Department Care Team Description 05/30/2025 9:26 AM EDT - 05/30/2025 11:59 PM EDT Hospital Encounter [facility] [address] [place] [address] Left lower quadrant abdominal pain Discharge Disposition: Home or Self Care 05/30/2025 9:00 AM EDT Office Visit Walk-In Clinic - [facility] [address] [place], [place] [phone] Laurie Hughes NP Left lower quadrant abdominal pain (Primary Dx) 05/29/2025 Telephone Internal Medicine - [facility] [address] [place], [place] [phone] Davis Muniz MD 05/17/2025 Telephone Internal Medicine - [facility] [address] [place], [place] [phone] Davis Muniz MD 05/13/2025 Telephone Neurosurgery [place] [address] [place] [address] Melissa Brian MD 05/10/2025 8:30 AM EDT Office Visit [facility] [address] [facility] [address] [place] [phone] Alanis Ennis, VIVIANE Chronic migraine without aura with status migrainosus, not intractable (Primary Dx); Meningioma, cerebral ([facility] V24, [facility] V28); Seizure ([facility] V24, [facility] V28) 04/29/2025 10:56 AM EDT - 04/29/2025 11:59 PM EDT Hospital Encounter [facility] MRI [address] [place] [phone] Meningioma ([facility], [facility] V28) Discharge Disposition: Home or Self Care 04/22/2025 Telephone Neurosurgery [facility] [address] [facility] [address] [place] [phone] [place], [place] 04/02/2025 Telephone [facility] [address] [facility] [address] [place] [phone] [place], [place] 03/25/2025 11:45 AM EDT Office Visit Orthopedic Surgery [facility] [address] [facility] [address] [place] [phone] Davis Phelan MD S/P reverse total shoulder arthroplasty, right (Primary Dx) from Last 3 Months Immunizations Name Administration [...] 10 yrs SHOULDER ARTHROSCOPY 11/24/2021 Right PROCEDURE: MI SURGICAL ARTHROSCOPY SHOULDER W/LSS&RESCJ ADS; COMMENT: shoulder Labral Debridement and Glenohumeral Debridment with Dr. Phelan OTHER SURGICAL HISTORY 05/09/2023 PROCEDURE: MI CRANIEC TREPHINE BONE FLP BRAIN TUMOR SUPRTENTOR; COMMENT: Right pteronial craniotomy for resection of olfactory groove meningioma, Dr. Brian, path: Grade 1 meningioma REVERSE TOTAL SHOULDER ARTHROPLASTY 12/11/2024 Right Medical History Medical History Date Comments Primary osteoarthritis of both knees 08/12/2016 DX:Primary osteoarthritis of both knees Seizure disorder (CMS/HCC V2 4, CMS/HCC V28) 03/04/2016 DX:Seizure disorder ([facility]); C OMMENT: Occurring after closed head injuries Uncomplicated asthma 02/07/2017 DX:Uncompli cated asthma Gout 03/04/2016 DX:Gout Diabetes mellitus type 2, co ntrolled, with complications (CMS/HCC V24, CMS/HCC V28) DX:Diabetes mellitus type 2, controlled, with complications ([facility]) Esophageal reflux DX:Esophageal reflux Hyperlipidemia DX:Hyperlipidemi a [...] Not Answered Alcohol Use Standard Drinks/Week Comments Not Currently 0 (1 standard drink = 0.6 oz pur e alcohol) Housing Instability Answer Date Recorde d Are you worried that in the next 2 months you may not have stable housing? No 02/19/2025 Food Access & Nutrition Answer Date Rec orded Do you have access to a vari ety of food including fruits and vegetables? No 02/19/2025 Health Literacy Answer Date Recorded How often do you need to hav e someone help you when you read instructions, pamphlets, or other written material from your doctor or pharmacy? Never 02/19/2025 Caregiver: How often do you need to have someone help you when you read instructions, pamphlets, or other written material from your doctor or pharmacy? Not on file 02/19/2025 Financial Risk Answer Date Recorded How hard is it for you to pa y for the very basics like food, housing, medical care, and air conditioning / heating? Not very hard 02/19/2025 Transportation Answer Date Recorded Has the lack of transportati on kept you from meetings, work, or from getting things needed for daily living? No Has the lack of transportati on kept you from medical appointments or from getting medications? No 02/19/2025 Social Isolation Answer Date Recorded How often do you feel lonely or isolated from th ose around you? Never 02/19/2025 Food Risk Answer Date Recorded Within the past 12 months we worried whether our food would run out before we got money to buy more. Never true 02/19/2025 Within the past 12 months th e food we bought just didn't last and we didn't have money to get more. Never true 02/19/2025 Dependent Care Answer Date Recorded Do you need help finding or paying for care for your loved ones. For example, child nutrition assistant or elderly care for an older adult? No 02/19/2025 Education Answer Date Recorded Do you think completing more education or training, like finishing a GED, going to college, or learning a trade, would be helpful for you? No 02/19/2025 Employment and Income Answer Date Recor ded During the last four weeks, have you been actively looking for work? No 02/19/2025 Living Situation Answer Date Recorded What is your living situation? 0 02/19/2025 Interpersonal Safety Answer Date Record ed Physical Abuse 12/11/2024 Verbal Abuse 12/11/2024 Sex and Gender Information Value Date Recorded Sex Assigned at Male 12/11/2024 5:57 AM EST Legal Sex Male 6:22 PM EST Gender Identity Male 12/11/2024 5:57 AM EST Sexual Orientation Straight 12/11/2024 5: 57 AM EST Obstetrics History Last Filed Vital Signs Vital Sign Reading Time Taken Comments Blood Pressure 113/72 05/30/2025 8:54 AM EDT Pulse 87 05/30/2025 8:54 AM EDT Temperature 36.7 C (98 F) 05/30/2025 8:54 AM EDT Respiratory Rate 20 12/11/2024 2:41 PM EST Oxygen Saturation 94% 05/10/2025 8:28 AM EDT Inhaled Oxygen Concentration - - Weight 138 kg (304 lb) 05/10/2025 8:28 AM EDT Height 182.2 cm (5' 11.75 ) 02/19/2025 9:29 AM E DT Body Mass Index 41.52 02/19/2025 9:29 AM EDT Plan of Treatment Upcoming Encounters Date Type Department Care Team (Late st Contact Info) Description 06/26/2025 8:15 AM EDT Office Visit Internal Medicine - [address] [phone] Davis Muniz MD [address] [place] [phone] 06/26/2025 9:00 AM EDT Office Visit Orthopedic Surgery - [place] [address] [facility] [address] [place] [phone] [place] [address] 07/24/2025 10:20 AM EDT Consult Gastroenterology - [place] [address] [facility] 175 [facility] [address] [place] [phone] Owen Eduardo MD [address] [place] [phone] 11/11/2025 8:30 AM EST Office Visit [facility] [place] [address] [facility] [address] [place] [phone] Mundo Richardson MD [facility] [place] [address] Health Maintenance Due Date Last Done Comments Diabetes: Annual Retina Eye Exam 10/10/2024 10/10/2023 Depression Screening 10/24/2024 Diabetes: Blood Sugar Control Test (HGBA1C) 05/28/2025 11/28/2024, 05/21/2024, 05/21/2024 Influenza Vaccine (#1) 2025 , 07/28/2018, 06/29/2017, Additional history exists Diabetes: Annual GFR (Glomerular Filtration Rate) 11/28/2025 11/28/2024, 10/04/2024, 05/21/2024, Additional history exists Hypertension/CHF/CAD Annual BMP Blood Test 11/28/2025 11/28/2024, 10/04/2024, 05/21/2024, Additional history exists Diabetes: Annual Urine Albumin-Creatinine Ratio (uACR) 02/19/2026 02/19/2025, 01/11/2023 Diabetes: Annual Foot Exam 02/19/2026 02/19/2025 Social Influencers of Health Screening 02/19/2026 02/19/2025 Colorectal Cancer Screening: Colonoscopy 05/20/2027 05/20/2017 Cholesterol Screening (Lipid Panel) 05/21/2029 05/21/2024, 05/21/2024 DTaP,Tdap,and Td Vaccines (2 - Td or Tdap) 09/08/2030 09/08/2020 Hepatitis C Screening Completed 03/11/2017 Pneumococcal Vaccine: 50+ Years Discontinued 02/08/2019, 11/07/2017 COVID-19 Vaccine Discontinued HIB Vaccines Aged Out No longer eligi ble based on patient's age to complete this topic HIV Screening Discontinued HPV Vaccines Aged Out No longer eligi ble based on patient's age to complete this topic Hepatitis A Vaccines Aged Out No long er eligible based on patient's age to complete this topic Hepatitis B Vaccines Discontinued IPV Vaccines Aged Out No longer eligi ble based on patient's age to complete this topic MMR Vaccines Aged Out No longer eligi ble based on patient's age to complete this topic Meningococcal ACWY Vaccine Aged Out N o longer eligible based on patient's age to complete this topic Meningococcal B Vaccine Aged Out No l onger eligible based on patient's age to complete this topic RSV Immunization Patients Under 20 months Aged Out No longer eligible based on patient's age to complete this topic Varicella Vaccines Aged Out No longer eligible based on patient's age to complete this topic Zoster Vaccines Discontinued Goals Goal Patient Goal Type Associated Problems Recent Progress Patient-Stated? Author (12 weeks) General No Vic Raymond, PT Note: Increase AROM R shoulder to 80-90% full Increase strength R shoulder to 4-5/5 Improve to mod I with all ADL's/IADLs Medical Devices Implanted Type Area Receiving Worker Device Identifier Shelf Expiration Date Model / Serial / Lot Peripheral Screw 5x34mm - Sn/A - [id number] Implanted:Qty: 1 on 12/11/2024 by Davis Phelan MD at [facility] Internal and External Fixation Right: Shoulder [employer] [id number] / N/A / N/A Peripheral Screw 5x38mm - Sn/A - [id number] Implanted:Qty: 1 on 12/11/2024 by Davis Phelan MD at [facility] Internal and External Fixation Right: Shoulder [employer] [id number] / N/A / N/A Standard Baseplate 29mm - [id number] - [id number] Implanted:Qty: 1 on 12/11/2024 by Davis Phelan MD at [facility] Joints Shoulder Right: Shoulder [employer]- [employer] [id number] 07/24/2026 [id number] / [id number] / N/A Central Threaded Post Screw 6.5x30mm - Sn/A - [id number] Implanted:Qty: 1 on 12/11/2024 by Davis Phelan MD at [facility] Joints Shoulder Right: Shoulder [employer] [id number] / N/A / N/A Peripheral Screw 5x26mm - Sn/A - [id number] Implanted:Qty: 1 on 12/11/2024 by Davis Phelan MD at [facility] Joints Shoulder Right: Shoulder [employer] [id number] / N/A / N /A Peripheral Screw 5x30mm - Sn/A - [id number] Implanted:Qty: 1 on 12/11/2024 by Davis Phelan MD at [facility] Joints Shoulder Right: Shoulder [employer] [id number] / N/A / N/A Stem Humeral Perform Sz 3 - [id number] - [id number] Implanted:Qty: 1 on 12/11/2024 by Davis Phelan MD at [facility] Joints Shoulder Right: Shoulder [employer] 08/16/2029 [id number] / [id number] / N/A Humeral Perform Ret Insert Sz3/4 42mm +0 - [id number] - [id number] Implanted:Qty: 1 on 12/11/2024 by Davis Phelan MD at [facility] Joints Shoulder Right: Shoulder [employer] 02/07/2029 [id number] / [id number] / N/A [employer] Implanted:Qty: 1 on 12/11/2024 by Davis Phelan MD at [facility] Right: Shoulder [employer] [id number] 08/08/2027 [id number] / [id number] / N/A Procedures Procedure Name Priority Date/Time Associated Diagnosis Comments XR ABDOMEN 1 VIEW STAT 05/30/2025 9:3 6 AM EDT Left lower quadrant abdominal pain MR BRAIN WO AND W CONTRAST Routine 04/29/2025 12:14 PM EDT Meningioma (CMS/HCC V24, CMS/HCC V28) BASIC METABOLIC PANEL Routine 11/28/2024 1:11 PM EST Encounter for screening for diabetes mellitus Preop testing HEMOGLOBIN A1C Routine 11/28/2024 1:11 PM EST Encounter for screening for diabetes mellitus Preop testing LIPID PANEL Routine 05/21/2024 DIABETES EYE EXAM Routine 10/10/2023 URINE ALBUMIN CREATININE RATIO Routine 01/11/2023 COLONOSCOPY Routine 05/20/2017 HEPATITIS C SCREENING Routine 03/11/2017 from Last 3 Months or Most Recently Relevant to Health Maintenance Results * XR Abdomen 1 View (05/30/2025 9:36 AM EDT) Anatomical Region Laterality Modality Body Radiographic Tereza ging 05/30/2025 9:50 AM EDT Impressions 05/30/2025 10:01 AM EDT No acute findings. -------- FINAL REPORT -------- Dictated By: Alysha Mullins Dictated Date: 05/30/2025 09:50 ET Assigned Physician: Alysha Mullins Reviewed and Electronically Signed By: Alysha Mullins Signed Date: 05/30/2025 10:01 ET Workstation ID: [id number] Transcribed By: Self Edit Transcribed Date: 05/30/2025 09:50 ET Narrative 05/30/2025 10:01 AM EDT XR ABDOMEN 1 VIEW HISTORY: Pain. PRIORS: None. FINDINGS: The kidneys are partially obscured by bowel contents. No radiopaque calculi are seen. There is a nonspecific, nonobstructive bowel gas pattern. No pneumotosis or pneumoperitoneum is seen. There is degenerative change of the spine. Procedure Note Alysha Mullins MD - 05/30/2025 XR ABDOMEN 1 VIEW HISTORY: Pain. PRIORS: None. FINDINGS: The kidneys are partially obscured by bowel contents. No radiopaque GUcalculi are seen. There is a nonspecific, nonobstructive bowel gas pattern. No pneumotosisor pneumoperitoneum is seen. There is degenerative change of the spine. IMPRESSION: No acute findings. -------- FINAL REPORT -------- Dictated By: Alysha Mullins Dictated Date: 05/30/2025 09:50 ET Assigned Physician: Alysha Mullins Reviewed and Electronically Signed By: Alysha Mullins Signed Date: 05/30/2025 10:01 ET Workstation ID: [id number] Transcribed By: Self Edit Transcribed Date: 05/30/2025 09:50 ET us Laurie Hughes INTELLIGENCE OPERATIONS SPECIALIST IMG XR PROCEDURES Final Result * MR Brain wo and w Contrast (04/29/2025 12:14 PM EDT) Anatomical Region Laterality Modality Head and Neck Magnetic Resonan ce 04/29/2025 1:25 PM EDT Impressions 04/29/2025 1:30 PM EDT Postcraniotomy changes in the lateral right frontal region with stable areas of encephalomalacia along the inferomedial frontal lobes and the anterolateral right frontal lobe. The findings are consistent with postsurgical changes of a prior meningioma resection. No evidence of a recurrent or residual mass. -------- FINAL REPORT -------- Dictated By: Omid Zambrano Dictated Date: 04/29/2025 13:25 ET Assigned Physician: Omid Zambrano Reviewed and Electronically Signed By: Omid Zambrano Signed Date: 04/29/2025 13:30 ET Workstation ID: [id number] Transcribed By: Self Edit Transcribed Date: 04/29/2025 13:25 ET Narrative 04/29/2025 1:30 PM EDT PROCEDURE: Contrast-enhanced MRI of the brain. HISTORY: Brain mass or lesion. TECHNIQUE: Multiplanar multisequence MRI of the brain with and without intravenous contrast. IV CONTRAST DOSE: 20 mL intravenous Dotarem from a 20 mL vial with 0 mL discarded. COMPARISON: 04/30/2024. FINDINGS: BRAIN: No diffusion abnormality. No mass or extra-axial fluid collection. No hydrocephalus. The major intracranial flow voids are preserved. Age commensurate ventricles and sulci. No abnormal enhancement. Stable encephalomalacia involving the inferomedial frontal lobes in the inferolateral right frontal lobe. Stable multifocal T2 hyperintensities throughout the supratentorial white matter and patchy T2 signal in the central aeblino, nonspecific but likely sequela of moderate chronic microvascular ischemic disease. ORBITS: Normal. SINUSES/MASTOIDS: Normal. CALVARIUM: Postcraniotomy changes in the lateral right frontal region. OTHER: The visualized skull base soft tissues are normal. Partially visible mild degenerative changes of the cervical spine. Procedure Note Omid Zambrano MD - 04/29/2025 PROCEDURE: Contrast-enhanced MRI of the brain. HISTORY: Brain mass or lesion. TECHNIQUE: Multiplanar multisequence MRI of the brain with and withoutintravenous contrast. IV CONTRAST DOSE: 20 mL intravenous Dotarem from a 20 mL vial with 0 mLdiscarded. COMPARISON: 04/30/2024. FINDINGS: BRAIN: No diffusion abnormality. No mass or extra-axial fluid collection.No hydrocephalus. The major intracranial flow voids are preserved. Agecommensurate ventricles and sulci. No abnormal enhancement. Stableencephalomalacia involving the inferomedial frontal lobes in theinferolateral right frontal lobe. Stable multifocal T2 hyperintensitiesthroughout the supratentorial white matter and patchy T2 signal in thecentral abelino, nonspecific but likely sequela of moderate chronicmicrovascular ischemic disease. ORBITS: Normal. SINUSES/MASTOIDS: Normal. CALVARIUM: Postcraniotomy changes in the lateral right frontal region. OTHER: The visualized skull base soft tissues are normal. Partiallyvisible mild degenerative changes of the cervical spine. IMPRESSION: Postcraniotomy changes in the lateral right frontal region with stableareas of encephalomalacia along the inferomedial frontal lobes and theanterolateral right frontal lobe. The findings are consistent withpostsurgical changes of a prior meningioma resection. No evidence of arecurrent or residual mass. -------- FINAL REPORT -------- Dictated By: Omid Zambrano Dictated Date: 04/29/2025 13:25 ET Assigned Physician: Omid Zambrano Reviewed and Electronically Signed By: Omid Zambrano Signed Date: 04/29/2025 13:30 ET Workstation ID: [id number] Transcribed By: Self Edit Transcribed Date: 04/29/2025 13:25 ET us Melissa Brian MD [facility] [place] PROCEDURES Final Result * (ABNORMAL) Hemoglobin A1c (11/28/2024 1:11 PM EST) Hemoglobin A1C 6.9(H) <6.5 % LAB CHEMISTRY METHOD 11/29/2024 11:39 AM EST [facility] Mean Bld Glu Estim. 151 mg/dL LAB CHEMISTRY METHOD 11/29/2024 11:39 AM [facility] Blood Venous blood specimen / Unknown Venipuncture / Unknown 11/28/2024 1:11 PM EST 11/28/2024 1:11 PM EST us Davis Phelan MD LAB BLOOD ORDERABLES Final Res ult [facility] [address] [place] [address], [place] [phone] * (ABNORMAL) Basic metabolic panel (11/28/2024 1:11 PM EST) Sodium 139 133 - 145 mmol/L LAB CHEMISTRY METHOD 11/28/2024 7:16 PM [facility] Potassium 4.5 3.5 - 5.5 mmol/L LAB CHEMISTRY METHOD 11/28/2024 7:16 PM [facility] Chloride 105 96 - 110 mmol/L LAB CHEMISTRY METHOD 11/28/2024 7:16 PM [facility] CO2 30 21 - 32 mmol/L LAB CHEMISTRY METHOD 11/28/2024 7:16 PM [facility] Anion Gap 4 3 - 11 LAB CHEMISTRY METHOD 11/28/2024 7:16 PM [facility] Glucose 73 70 - 100 mg/dL LAB CHEMISTRY METHOD 11/28/2024 7:16 PM [facility] BUN 14 5 - 25 mg/dL LAB CHEMISTRY METHOD 11/28/2024 7:16 PM [facility] Creatinine 1.40(H) 0.70 - 1.30 mg/dL LAB CHEMISTRY METHOD 11/28/2024 7:16 PM [facility] eGFR 59(L) >=60 mL/min/1. 73m2 LAB CHEMISTRY METHOD 11/28/2024 7:16 PM EST [facility] Comment:Calculation based on the Chronic Kidney Disease Epidemiology Collaboration (CKD-EPI) equation refit without adjustment for race. BUN/Creatinine Ratio 10.0 LAB CHEMISTRY METHOD 11/28/2024 7:16 PM EST [facility] Calcium 9.9 8.5 - 10.5 mg/dL LAB CHEMISTRY METHOD 11/28/2024 7:16 PM EST [facility] Blood Venous blood specimen / Unknown Venipuncture / Unknown 11/28/2024 1:11 PM EST 11/28/2024 1:11 PM EST Davis Phelan MD LAB BLOOD ORDERABLES Final Res ult [facility]) [facility] [address] [place] [address], [place] [phone] * Lipid panel (05/21/2024) [facility] LDL/HDL Ratio 3 0 - 4 Triglycerides 110 0 - 150 mg/dL Cholesterol 182 0 - 200 mg/dL HDL 68 >=40 mg/dL LDL Cholesterol 92 0 - 100 mg/dL Blood Venous blood specimen / Unknown Result [facility] Jairo LEUNG LAB BLOOD ORDERABLES Gabrielle l Result * Diabetes Eye Exam (10/10/2023) [facility] Diabetes: Annual Retina Eye Exam Abstracted Historical Jairo LEUNG HEALTH MAINTENANCE Final Result * Urine Albumin Creatinine Ratio (01/11/2023) [facility] Urine Albumin Creatinine Ratio Abstracted Historical Provider HEALTH MAINTENANCE Final Result * Colonoscopy (05/20/2017) [facility] Colonoscopy Normal, Abstracted Anatomical Region Laterality Modality Other Result [facility] Historical Jairo LEUNG HEALTH MAINTENANCE Final Result * Hepatitis C Screening (03/11/2017) [facility] Hepatitis C Screening Abstracted Result [facility] Historical Jairo LEUNG HEALTH MAINTENANCE Final Result from Last 3 Months or Most Recently Relevant to Health Maintenance Insurance [facility] [facility] Advance Directives Documents on File Type Date Recorded Patient Book Editor Expl anation Power of Cinder Pit Worker 12/11/2024 8:30 AM HEALT H CARE PROXY Health Care Decision (hx) 08/30/2019 AD FRAUSTO [...] Care Decision (hx) 08/30/2019 AD FRAUSTO DIRECTIVE * Full Code - Default (Latest Code Status on File) Date Activated Date Inactivated Comments 12/11/2024 7:41 AM 12/11/2024 6:02 PM This is orde r is used when code status has not been discussed with the patient, or code status is otherwise unknown/unconfirmed To update the patient's code status, place a code status order. Do not modify or discontinue any currently active code status orders. Care Teams Sleep Technologist Relationship Specialty Start Date End Date Davis Muniz MD [address] [place] [id number] PCP - General Internal Medicine 08/31/24
--- OUTSIDE RECORDS SUMMARY | 2025-06-18 09:30 | XMS_ITS ---
Author Name [facility] Organization Unknown History of Medication Use Medication Directions Dispensed Refills Start Date End Date Stat pantoprazole (PROTONIX) 40 MG tablet Take 1 tablet (40 mg total) by mouth every morning on an empty stomach. active Problems Problem Status Onset Date Problem Type Date of Resoluti on Source Medication overuse headache active EncounterDiagnosisAct [facility] Seizure (HCC) active EncounterDiagnosisAct [facility] Encounters Encounter Type Encounter Reason Primary Diagnosis Location Date Ambulatory Drug-induced headache, not elsewhere classified, not intractable Drug-induced headache, not elsewhere classified, not intractable [facility] 08/16/2024 Ambulatory Drug-induced headache, not elsewhere classified, not intractable Drug-induced headache, not elsewhere classified, not intractable [facility] 08/16/2024 Care Team Organization Name Specialty Phone Email Start Date End Da te [facility] Gisela Jenkins Primary [facility] 09/03/2024 [facility] Gisela Jenkins Primary Care 08/31/2024 [facility] GISELA JENKINS Primary Care 08/20/20 [facility] 08/18/2024 05/07/2025 [facility] Gisela Jenkins Primary Care 08/31/2022 06/11/20
== END 2025-06-18 09:46 | disposition home or self-care (01) ==
PROVIDERS: PCP Internal Medicine; Visit Provider Urology
DX: E11.69 Type 2 diabetes mellitus with other specified complication (principal); N52.1 Erectile dysfunction due to diseases classified elsewhere
CPT/HCPCS: 99213

== ENCOUNTER → 2025-06-18 09:08 | Outpatient (BNVA) | payer OTHER, SELFPAY | PROVIDERS: PCP Internal Medicine; Visit Provider Urology | DX: E11.69 Type 2 diabetes mellitus with other specified complication (principal); N52.1 Erectile dysfunction due to diseases classified elsewhere | CPT/HCPCS: 99212 ==